=== PATIENT | female | born 1970 | race Caucasian/White ===

== ENCOUNTER 2023-05-16 11:59 | Emergency (ER) | payer MEDICARE, MEDICAID, SELFPAY ==
[2023-05-16 12:06] VITALS: BP 108/80; PULSE 85; RESP 18; TEMP 36.9; O2SAT 99; BMI 24.7
--- NOTE | 2023-05-16 13:18 | ED_ITS ---
HPI - Eye Problem General Chief complaint: Eye Problems Stated complaint: VISUAL DISTURBANCE/ EYE PAIN Time Seen by Provider: 05/16/23 12:16 Source: patient Mode of arrival: walk-in Limitations: no limitations History of Present Illness HPI Narrative: According to the patient she was helping someone of her relatives to do that her when she felt like something got inside her eye and she started her eye left eye tearing as well as blurry vision developed after few minutes The patient does not wear contact lenses and denies any other trauma she does not specifically remember that something got in her eyes but she remembers that the symptoms started while she was helping with her Related Data Previous Rx's Medication Instructions Recorded erythromycin 5 mg/gram (0.5 %) eye 0.5 inch ophthalmic (eye) Q4H left 05/16/23 ointment eye #3.5 grams tramadol 50 mg tablet 50 mg PO Q8H PRN pain #9 tabs 05/16/23 Allergies Allergy/AdvReac Type Severity Reaction Status Date / Time sulfamethoxazole Allergy Intermediate Verified 05/16/23 12:09 [From Bactrim] trimethoprim [From Bactrim] Allergy Intermediate Verified 05/16/23 12:09 Review of Systems ROS Status of ROS 10 or more systems reviewed and unremarkable except as noted in history and below PFSH PFSH Social History Smoking status: Former smoker Exam Narrative Exam Narrative: Nurses notes and vital signs reviewed and patient is not hypoxic. General: Well-appearing and in no apparent distress. Skin: Warm, dry, no pallor noted. No rash. Head: Normocephalic, atraumatic. Neck: Supple, non-tender. Eye: Pupils are reactive and equal and the patient have erythema of the left eye as well as conjunctival redness noted all over the eye there is tearing of the left eye as well Ears, Nose, Mouth, and Throat: TM are clear, no nasal mucosal hypertrophy. Oral mucosa is moist, no posterior oropharynx erythema, uvula is mid-line Cardiovascular: Regular Rate and Rhythm without murmur, gallop or rub. Respiratory: No accessory muscle use or respiratory distress. Lungs are clear to auscultation, no wheezing, rales or rhonchi Chest Wall: no tenderness Back: No midline thoracic or lumbar vertebral tenderness. No CVA tenderness Musculoskeletal: normal ROM, no calf or popliteal tenderness, no lower extremity edema/swelling GI: Abdomen is soft, non-distended. Normal bowel sounds. No masses appreciated. No tenderness to palpation. No rebound, guarding, or rigidity noted. Neurological: A&O x4. No cranial nerve dysfunction observed. No truncal ataxia. Moves all extremities. Sensation intact. Psychiatric: Cooperative and interactive. Normal mood and affect. Constitutional Vital Signs, click to edit/add: Last Vital Signs Temp 98.4 F 05/16/23 12:06 Pulse 85 05/16/23 12:06 Resp 18 05/16/23 12:06 BP 108/80 05/16/23 12:06 Pulse Ox 99 05/16/23 12:06 O2 Del Method Room Air 05/16/23 12:06 Course Vital Signs Vital signs: Vital Signs Temperature 98.4 F 05/16/23 12:06 Pulse Rate 85 05/16/23 12:06 Respiratory Rate 18 05/16/23 12:06 Blood Pressure 108/80 05/16/23 12:06 Pulse Oximetry 99 05/16/23 12:06 Oxygen Delivery Method Room Air 05/16/23 12:06 Temperature 98.4 F 05/16/23 12:06 Pulse Rate 85 05/16/23 12:06 Respiratory Rate 18 05/16/23 12:06 Blood Pressure 108/80 05/16/23 12:06 Pulse Oximetry 99 05/16/23 12:06 Oxygen Delivery Method Room Air 05/16/23 12:06 MDM - Eye Problem MDM Narrative Medical decision making narrative: Tetracaine was applied to the left eye after that the patient had a fluorescein test that showed that she have a abrasion that almost half millimeter at the [address] ter of the cornea circular in shape No other lesions found and no signs of trauma or leaking The patient was started on erythromycin instructed that she need to come back to the ER in case of any new symptom but she need to follow-up with ophthalmology Dr. Man information was provided to the patient to follow-up with him within 1 to 2 days The patient instructed about the importance of follow-up for proper healing Discharge Plan Discharge Chief Complaint: Eye Problems Clinical Impression: Corneal abrasion Patient Disposition: Home, Self-Care Time of Disposition Decision: 13:39 Condition: Good Mode of Transportation: Private Vehicle Prescriptions / Home Meds: New erythromycin 5 mg/gram (0.5 %) ointment 0.5 inch ophthalmic (eye) Q4H Qty: 3.5 0RF tramadol 50 mg tablet 50 mg PO Q8H PRN (Reason: pain) Qty: 9 0RF Instructions: Corneal Abrasion (ED), Photophobia (ED) Stand Alone Forms: Portal Instructions Referrals: Justin Man MD [Physician] - As soon as possible Physician,Non-Staff, [Primary Care Provider] - 1 week Discharge Date/Time: 05/16/23 14:08
[2023-05-16] MEDS: ERYTHROMYCIN OP OINT 0.5% 1 GM TUBE OP (13:41)
[2023-05-16] MEDS: FLUORESCEIN SODIUM 1 MG STRIP OP (13:58)
[2023-05-16] MEDS: TETRACAINE HCL 0.5% OP SOL 80 DROP/4 ML BOTTLE OP (13:59)
== END 2023-05-16 14:08 | disposition home or self-care (01) ==
PROVIDERS: Emergency Provider Emergency Medicine
DX: S05.02XA Injury of conjunctiva and corneal abrasion without foreign body, left eye, initial encounter (principal); X58.XXXA Exposure to other specified factors, initial encounter; Z87.891 Personal history of nicotine dependence
CPT/HCPCS: 99284

== ENCOUNTER 2024-09-21 16:53 | Emergency (ER) | payer MEDICARE, MEDICAID, SELFPAY ==
[2024-09-21 17:00] VITALS: BP 128/91; PULSE 83; TEMP 36.8; O2SAT 97; BMI 24.7
--- NOTE | 2024-09-21 17:05 | ED.GENADUL1 ---
HPI HPI - General Adult General Chief complaint: Upper Respiratory Infection Stated complaint: COUGH, FEVER Time Seen by Provider: 09/21/24 17:00 Mode of arrival: walk-in History of Present Illness HPI narrative: 54-year-old female presents for cough. She has had it for 2 days. A few weeks ago she saw her doctor for cough and a chest x-ray at that time was negative and her symptoms had gone away until 2 days ago. The cough is nonproductive. No fever or vomiting or diarrhea. Related Data Home Medications ?Medication ?Instructions ?Recorded ?Confirmed dolutegravir 50 mg-lamivudine 300 tab 09/21/24 mg tablet (Dovato) Previous Rx's ?Medication ?Instructions ?Recorded prednisone 10 mg tablet See Rx Instructions .Route 09/21/24 .COMPLEX #30 tabs Allergies Allergy/AdvReac Type Severity Reaction Status Date / Time sulfamethoxazole (From Allergy Intermediate blood Verified 09/21/24 17:00 Bactrim) reaction trimethoprim (From Bactrim) Allergy Unknown blood Verified 09/21/24 17:00 reaction Opioid HPI Opioid Management Most Recent Opioid Data: Last Pain Scale 8 05/16/23 12:54 05/16/23 Review of Systems ROS Narrative A ten point review of systems is negative except as noted above. PFSH PFSH Social History Smoking status: Former smoker Little interest or pleasure in doing things: not at all Feeling down, depressed, or hopeless: not at all Exam Narrative Exam Narrative: Nurses note and vital signs reviewed and patient is not hypoxic. General: The patient appears well and in no apparent distress. Patient is resting comfortably on cart. Skin: Warm, dry, no pallor noted. There is no rash noted. Head: Normocephalic, atraumatic Eye: Normal conjunctiva, no drainage Ears, Nose, Mouth, and Throat: oral mucosa is moist. Nares patent. Cardiovascular: Regular Rate and Rhythm Respiratory: Patient is in no distress, no accessory muscle use, lungs show a few rhonchi but overall good air movement Back: non-tender, no CVA tenderness bilaterally to percussion. GI: Soft and nontender Musculoskeletal: The patient has no evidence of calf tenderness, no pitting edema, symmetrical pulses noted bilaterally Neurological: A&O, normal speech Psychiatric: Cooperative Constitutional Vital Signs, click to edit/add: Last Vital Signs Temp 98.2 F 09/21/24 17:00 Pulse 83 09/21/24 17:00 Resp 18 09/21/24 17:00 BP 128/91 09/21/24 17:00 Pulse Ox 97 09/21/24 17:00 O2 Del Method Room Air 09/21/24 17:00 Course Vital Signs Vital signs: Vital Signs Temperature 98.2 F 09/21/24 17:00 Pulse Rate 83 09/21/24 17:00 Respiratory Rate 18 09/21/24 17:00 Blood Pressure 128/91 09/21/24 17:00 Pulse Oximetry 97 09/21/24 17:00 Oxygen Delivery Method Room Air 09/21/24 17:00 Temperature 98.2 F 09/21/24 17:00 Pulse Rate 83 09/21/24 17:00 Respiratory Rate 18 09/21/24 17:00 Blood Pressure 128/91 09/21/24 17:00 Pulse Oximetry 97 09/21/24 17:00 Oxygen Delivery Method Room Air 09/21/24 17:00 Medical Decision Making MDM Narrative Medical decision making narrative: COVID and influenza are negative. Her symptoms resolved and aerosol treatment. She is discharged home on prednisone and she has an albuterol inhaler at home that was recently filled. Treatment diagnosis and follow-up were discussed with the patient. My clinical impression is that she has a viral URI. Differential Diagnosis Differential Diagnosis: Viral URI, COVID, influenza Lab Data Lab results reviewed: Yes I reviewed the patient's lab results Labs: Lab Results 09/21/24 Range/Units 17:06 Influenza Type A Ag Negative Influenza Type B Ag Negative SARS-CoV-2 Ag (CV2AG) Negative (NEGATIVE) Discharge Plan Discharge Chief Complaint: Upper Respiratory Infection Clinical Impression: Viral URI Patient Disposition: Home, Self-Care Time of Disposition Decision: 17:43 Condition: Good Mode of Transportation: Private Vehicle Prescriptions / Home Meds: New prednisone 10 mg tablet See Rx Instructions .ROUTE .COMPLEX Qty: 30 0RF Rx Instructions: 4 by mouth daily for three days then 3 by mouth daily for three days then 2 by mouth daily for three days then 1 by mouth daily for three days No Action Dovato 50-300 mg tablet Print Language: Hungarian Instructions: Upper Respiratory Infection (ED) Referrals: Physician,Non-Staff, MD [Primary Care Provider] - 1 week
[2024-09-21] MEDS: ALBUTEROL SULFATE 2.5 MG/3 ML VIAL NEB IH (17:16)
--- OUTSIDE RECORDS SUMMARY | 2024-09-21 17:20 | XMS_ITS | CCD ---
Author Organization [facility] [employer] Care Team Providers Care Msw Name Role Phone REQUEST, DR NONE LISTED Primary Care Unavaila ble PAY ., DR TINEO Admitting Unavailable PAY ., DR TINEO Attending Unavailable ZIEBER, DR ROBBY Leyva Consulting Unavailable PAY ., DR TINEO Consulting Unavailable MISC, DR RIOS Admitting Unavailable MISC, DR RIOS Attending Unavailable REQUEST, NONE LISTED Primary Care Unavaila ble MISC, DR RIOS Consulting Unavailable ZIEBER, DR ROBBY Leyva Consulting Unavailable MISC, DR RIOS Admitting Unavailable MISC, DR RIOS Attending Unavailable REQUEST, NONE LISTED Primary Care Unavaila ble MISC, DR RIOS Consulting Unavailable ZIEBER, DR ROBBY Leyva Consulting Unavailable Unavailable Primary Care Provider UnavailWILSON Ford Referring Unavailable WILSON RAY Referring Unavailable WILSON RAY Referring Unavailable WILSON RAY Attending Unavailable Allergies Allergy Classification Reported Allergen(s) Allergy Type Date of Onset Reaction(s) Facility (1 source) Sulfamethoxazole / Trimethoprim Drug Allergy 5 [facility] Repository (1 source) abacavir; Translations: [ABACAVIR] Drug Allergy 3 [facility] Repository (1 source) Sulfamethoxazole / Trimethoprim; Translations: [SULFAMETHOXAZOLE-TR IMETHOPRIM] Drug Allergy 4 [facility] Repository Problems Active Problems Problem Classification Problem Date Documented Date Episodic/Chronic Chronic obstructive pulmonary disease and bronchiectasis (1 source) Chronic obstructive pulmonary disease with (acute) exacerbation; Translations: [COPD WITH ACUTE EXACERBATION] Onset: 11-17-2021 Chronic HIV infection (2 sources) Asymptomatic human immunodeficiency virus [HIV] infection status; Translations: [Asymptomatic human immunodeficiency virus (hiv) infection status] Onset: 12-31-2022 Chronic Nonmalignant breast conditions (4 sources) Unspecified lump in unspecified breast; Translations: [Unspecified lump in left breast, subareolar] Onset: 09-17-2022 Episodic Other screening for suspected conditions (not mental disorders or infectious disease) (8 sources) Inconclusive mammogram; Translations: [Encounter for screening for malignant neoplasm of respiratory organs] Onset: 08-07-2022 Episodic Pneumonia (except that caused by tuberculosis or sexually transmitted disease) (2 sources) Pneumonia, unspecified organism; Translations: [Pneumonia, unspecified organism] Onset: 07-28-2024 Episodic Residual codes; unclassified (1 source) Family history of malignant neoplasm of bladder; Translations: [FAM HX MALIGNANT NEOPLASM BLADDER] Onset: 09-26-2022 Episodic Screening and history of mental health and substance abuse codes (3 sources) Personal history of nicotine dependence; Translations: [PERSONAL HISTORY OF NICOTINE DEPEND] Onset: 08-12-2022 Episodic Substance-related disorders (3 sources) Nicotine dependence, cigarettes, uncomplicated; Translations: [Nicotine dependence, unspecified, in remission] Onset: 11-17-2021 Chronic Unclassified (1 source) Unspecified lump in the left breast, overlapping quadrants; Translations: [UNS LUMP LT BREAST OVRLPNG QUADRNTS] Onset: 08-12-2022 Unclassified (2 sources) COUGH, UNSPECIFIED; Translations: [COUGH, UNSPECIFIED] Onset: 11-17-2021 Unclassified (1 source) CONTACT W/AND (SUSP) EXPOS COVID-19; Translations: [CONTACT W/AND (SUSP) EXPOS COVID-19] Onset: 11-17-2021 Past or Other Problems Problem Classification Problem Date Documented Da te Episodic/Chronic Other upper respiratory infections (1 source) Acute upper respiratory infection, unspecified; Translations: [ACUTE UP RESPIRATORY INFECTION UNS] Onset: 11-17-2021 Episodic Unclassified (1 source) COUGH, UNSPECIFIED; Translations: [COUGH, UNSPECIFIED] Onset: 11-14-2021 Results Test Name Value Interpretation Reference Range Facility BI MAMMOGRAM SCREENING TOMOS YNTHESIS BILATERALon 09-04-2024 BI MAMMOGRAM SCREENING TOMOSYNTHESIS BILATERAL This is a summary report. The complete report is available in the patient's medical record. If you cannot access the medical record, please contact the sending organization for a detailed fax or copy. RUBA MEJIA 1970 [id number] EXAM: BI MAMMOGRAM SCREENING TOMOSYNTHESIS BILATERAL, 09/04/2024 2:18 PM CLINICAL INDICATIONS: Screening, COMPARISON: Prior mammogram from September and October 2022 and ultrasound from October 2022. TECHNIQUE: Bilateral digital tomosynthesis MLO and CC views of the breasts were obtained, with creation of synthetic 2D views. Computer aided detection was utilized. FINDINGS: There are scattered areas of fibroglandular density. There are no suspicious masses, calcifications, or areas of architectural distortion. Well-defined rounded one CM mass in the left breast upper aspect around 12 o'clock position which is unchanged since prior studies for nearly 2 years and likely represent benign fibroadenoma IMPRESSION: No mammographic evidence of malignancy. BI-RADS: BI-RADS 2: Benign RECOMMENDATION: Routine Screening Mammogram in 1 Year RISK ASSESSMENT: TC lifetime risk: 2.49% The patient's reported personal and family medical history was used to calculate their Tyrer-Cuzick lifetime risk of malignancy. Scores less than 20% are not considered high risk per ACR guidelines and patient should continue with the above recommendation. Electronically signed: Gladis Bennett MD. [facility] LDCT LUNG SCREENINGon 2024 LDCT LUNG SCREENING This is a summary report. The complete report is available in the patient's medical record. If you cannot access the medical record, please contact the sending organization for a detailed fax or copy. CLINICAL INFORMATION: Screening visit: Personal history of tobacco use/personal history of nicotine dependence. Lung cancer screening. The patient is a prior smoker. The patient has a 20 pack year history of smoking. COMPARISON: 01/19/2023 TECHNIQUE: Low dose CT chest performed without contrast with coronal and sagittal and maximum intensity projection reconstructed images. Maximum intensity projection images generated to increase the sensitivity of pulmonary nodule detection. Automated exposure control was utilized. All CT scans at this facility use dose modulation, iterative reconstruction, and/or weight based dosing when appropriate to reduce radiation dose to as low as reasonably achievable. FINDINGS: Diagnostic quality: Satisfactory Lung nodules: Stable small calcified granulomas Lungs and pleural spaces: Moderate centrilobular emphysema Heart and mediastinum: Unremarkable Heart size: Normal Coronary calcification: Mild Pericardial effusion: None Other findings: None significant IMPRESSION: Lung Rads Category: Benign appearance or behavior Recommendation: Follow up LDCT in 1 Year Electronically signed: Robby Plaza. Not Vldtd Invalid Interpretation Code [facility] Office Visiton 07-28-2024 Follow-up visit [id number] Ruba Mejia Gretchen 1970 Date Provider Department Center 07/28/2024 WILSON NARVAEZ [facility] CARE [facility] Family History Problem Relation Age of Onset Diabetes Mother Other Father Lymphoma Sister Other Brother Family Status - Relation Status Age at Mother Father Sister Brother Level of Service:81513 MD OFFICE/OUTPATIENT ESTABLISHED MOD MDM 30 MIN Reason for Visit and Comments: Medication Visit [612] Health Maintenance [619] - Coughing, fever, congestion, diarrhea - onset 4wks Chest pressure feels tight HIV Positive/AIDS [109] Normal [facility] Orders Onlyon 07-28-2024 Orders Only [id number] Ruba Mejia Gretchen 1970 Date Provider Department Center 07/28/2024 WILSON NARVAEZ [facility] INF [facility] Family History Problem Relation Age of Onset Diabetes Mother Other Father Lymphoma Sister Other Brother Family Status - Relation Status Age at Mother Father Sister Brother Normal [facility] CBC WITH AUTO DIFFERENTIALon 04-28-2024 Basophils (Bld) [#/Vol] 0.07 10*3/uL Normal 0.00-0.20 [facility] Comment on above: Performed By: #### L [id number] ####[facility] ([facility])[address] [place] [address] Basophils/100 WBC (Bld) 0.8 % Normal 0.0-1.0 [facility] Comment on above: Performed By: #### L [id number] ####[facility] ([facility])[address] [place] [address] Eosinophils (Bld) [#/Vol] 0.43 10*3/uL Normal 0.00-0.50 [facility] Comment on above: Performed By: #### L [id number] ####[facility] ([facility])[address] [place] [address] Eosinophils/100 WBC (Bld) 5.1 % Normal 0.0-6.0 [facility] Comment on above: Performed By: #### L [id number] ####[facility] [place] [address] Erythrocyte distribution width (RBC) [Ratio] 12.7 % Normal 11.5-15.0 [facility] Comment on above: Performed By: #### L [id number] ####[facility] ([facility] [place] [address] ERYTHROCYTE MEAN CORPUSCULAR HEMOGLOBIN CONCENTRATION (G/DL) BY AUTOMATED 33.7 g/dL Normal 32.0-35.0 [facility] Comment on above: Performed By: #### L [id number] ####[facility] ([facility] [place] [address] Hematocrit (Bld) [Volume fraction] 38.6 % Normal 36.0-48.0 [facility] Comment on above: Performed By: #### L [id number] ####[facility] ([facility])[address] [place] [address] Hemoglobin (Bld) [Mass/Vol] 13.0 g/dL Normal 12.0-15.0 [facility] Comment on above: Performed By: #### L [id number] ####[facility] ([facility])[address] [place] [address] Immature granulocytes (Bld) [#/Vol] 0.03 10*3/uL Normal 0.00-0.20 [facility] Comment on above: Performed By: #### L [id number] ####[facility] ([facility])[address] [place] [address] Immature granulocytes/100 WBC (Bld) 0.4 % Normal 0.0-1.0 [facility] Comment on above: Performed By: #### L [id number] ####[facility] ([facility])[address] [place] [address] Lymphocytes (Bld) [#/Vol] 3.01 10*3/uL Normal 1.20-4.00 [facility] Comment on above: Performed By: #### L [id number] ####[facility] ([facility])[address] [place] [address] Lymphocytes/100 WBC (Bld) 35.6 % Normal 20.0-45.0 [facility] Comment on above: Performed By: #### L [id number] ####[facility] ([facility])[address] [place] [address] MCH (RBC) [Entitic mass] 33.3 pg High 27.0-33.0 [facility] Comment on above: Performed By: #### L [id number] ####[facility] ([facility])[address] [place] [address] MCV (RBC) [Entitic vol] 99.0 fL High 82.0-98.0 [facility] Comment on above: Performed By: #### L [id number] ####[facility] ([facility])[address] [place] [address] Monocytes (Bld) [#/Vol] 0.55 10*3/uL Normal 0.10-1.00 [facility] Comment on above: Performed By: #### L [id number] ####[facility] ([facility] [place] [address] Monocytes/100 WBC (Bld) 6.5 % Normal 5.0-12.0 [facility] Comment on above: Performed By: #### L [id number] ####[facility] ([facility] [place] [address] Neutrophils (Bld) [#/Vol] 4.36 10*3/uL Normal 1.60-7.60 [facility] Comment on above: Performed By: #### L [id number] ####[facility] ([facility])[address] [place] [address] Neutrophils/100 WBC (Bld) 51.6 % Normal 40.0-72.0 [facility] Comment on above: Performed By: #### L [id number] ####[facility] ([facility])[address] [place] [address] NRBC (PER 100 WBCS) BY AUTOMATED COUNT 0.0 % Normal 0 [facility] Comment on above: Performed By: #### L [id number] ####[facility] ([facility])[address] [place] [address] PLATELETS (10*3/UL) IN BLOOD AUTOMATED COUNT 230 10*3/uL Normal 150-400 [facility] Comment on above: Performed By: #### L [id number] ####[facility] ([facility])[address] [place] [address] RBC (Bld) [#/Vol] 3.90 10*6/uL Normal 3.80-5.00 [facility] Comment on above: Performed By: #### L [id number] ####[facility] ([facility])[address] [place] [address] WBC (Bld) [#/Vol] 8.45 10*3/uL Normal 4.00-10.60 [facility] Comment on above: Performed By: #### L [id number] ####[facility] ([facility])[address] [place] [address] COMPREHENSIVE METABOLIC PANE Landry 04-28-2024 Albumin [Mass/Vol] 4.4 g/dL Normal 3.5-5.7 [facility] Comment on above: Performed By: #### L [id number] #### [facility] ([facility]) [address] [place] [address] ALP [Catalytic activity/Vol] 67 U/L Normal 34-104 [facility] Comment on above: Performed By: #### L [id number] #### [facility] ([facility]) [address] [place] [address] ALT [Catalytic activity/Vol] 10 U/L Normal 7-52 [facility] Comment on above: Performed By: #### L [id number] #### [facility] ([facility]) [address] [place] [address] Anion gap [Moles/Vol] 7 mmol/L Normal 7-20 [facility] Comment on above: Performed By: #### L [id number] #### [facility] ([facility]) [address] [place] [address] AST [Catalytic activity/Vol] 12 U/L Low 13-39 [facility] Comment on above: Performed By: #### L [id number] #### [facility] ([facility] [address] [place] [address] Bilirubin [Mass/Vol] 0.4 mg/dL Normal 0.3-1.0 [facility] Comment on above: Performed By: #### L [id number] #### [facility] ([facility] [address] [place] [address] Calcium [Mass/Vol] 9.4 mg/dL Normal 8.6-10.3 [facility] Comment on above: Performed By: #### L [id number] #### [facility] ([facility]) [address] [place] [address] Chloride [Moles/Vol] 108 mmol/L High 98-107 [facility] Comment on above: Performed By: #### L [id number] #### [facility] ([facility] [address] [place] [address] CO2 [Moles/Vol] 29 mmol/L Normal 21-31 [facility] Comment on above: Performed By: #### L [id number] #### [facility] ([facility] [address] [place] [address] Creatinine [Mass/Vol] 0.80 mg/dL Normal 0.60-1.20 [facility] Comment on above: Performed By: #### L [id number] #### [facility] ([facility]) [address] [place] [address] GLOMERULAR FILTRATION RATE ML/MIN/1.73 SQ M.PREDICTED 87.0 mL/min/1.73m*2 Normal >60.0 [facility] Comment on above: Result Comment: [facility]???s estimated glomerular filtration rate (eGFR) will no longer include consideration of race in its calculation. The National Kidney Foundation???s eGFR Task Force developed new recommendations for the estimation of the glomerular filtration rate in the [place] They recommend immediate implementation of the new equation refit without the race variable in all laboratories because the calculation does not include race. In addition to not including race in the calculation and reporting, it included diversity in its development, and has acceptable performance characteristics and potential consequences that do not disproportionately affect any one group of individuals. Performed By: #### L [id number] #### [facility] ([facility]) [address] [place] [address] Glucose [Mass/Vol] 91 mg/dL Normal 70-100 [facility] Comment on above: Performed By: #### L [id number] #### [facility] ([facility]) [address] [place] [address] Potassium [Moles/Vol] 4.0 mmol/L Normal 3.5-5.1 [facility] Comment on above: Performed By: #### L [id number] #### [facility] ([facility]) [address] [place] [address] Protein [Mass/Vol] 6.8 g/dL Normal 6.0-8.3 [facility] Comment on above: Performed By: #### L [id number] #### [facility] ([facility]) [address] [place] [address] Sodium [Moles/Vol] 140 mmol/L Normal 136-145 [facility] Comment on above: Performed By: #### L [id number] #### [facility] ([facility] [address] [place] [address] Urea nitrogen [Mass/Vol] 10 mg/dL Normal 7-25 [facility] Comment on above: Performed By: #### L [id number] #### [facility] ([facility]) [address] [place] [address] UREA NITROGEN/CREATININE (MASS RATIO) IN SER/PLAS 12.5 Normal [facility] Comment on above: Performed By: #### L [id number] #### [facility] ([place]) [address] [place] [address] Documentationon 04-28-2024 Documentation [id number] Ruba Mejia 1970 F Date Provider Department Center 04/28/2024 TRESA CARR [facility] CARE Alda Barraza Family History Problem Relation Age of Onset Diabetes Mother Other Father Lymphoma Sister Other Brother Family Status - Relation Status Age at Mother Father Sister Brother Reason for Visit and Comments: Care plan [Other] [facility] Labon 04-28-2024 Lab [id number] Ruba Mejia 1970 Date Provider Department [place] 04/28/2024 2244-[facility] MP LAB RESOURCE MP DRAW Medical Pavi Family History Problem Relation Age of Onset Diabetes Mother Other Father Lymphoma Sister Other Brother Family Status - Relation Status Age at Mother Father Sister Brother [facility] Office Visiton 04-28-2024 Follow-up visit [id number] Ruba Mejia 1970 F Date Provider Department Center 04/28/2024 WILSON NARVAEZ [facility] Alda Barraza Family History Problem Relation Age of Onset Diabetes Mother Other Father Lymphoma Sister Other Brother Family Status - Relation Status Age at Mother Father Sister Brother Level of Service:85362 MD OFFICE/OUTPATIENT ESTABLISHED MOD MDM 30 MIN Reason for Visit and Comments: Asymptomatic HIV infection, with no history of HIV-related [Other] Health Maintenance [619] - Declines flu shot Med Management [[id number]] Normal [facility] Orders Onlyon 04-28-2024 Orders Only [id number] Ruba Mejia 1970 Date Provider Department Center 04/28/2024 WILSON NARVAEZ [facility] INF Alda Barraza Family History Problem Relation Age of Onset Diabetes Mother Other Father Lymphoma Sister Other Brother Family Status - Relation Status Age at Mother Father Sister Brother Normal [facility] RPRon 04-28-2024 REAGIN AB PRESENCE IN SERUM BY RPR Non-Reactive Normal Nonreactive [facility] Comment on above: Performed By: #### L [id number] #### [facility] ([facility]) [address] [place] [address] T CELL SUBSET ANALYSISon CD3 77.59 % Normal 65.00-90.00 [facility] Comment on above: Performed By: #### L [id number] #### [facility] ([facility]) [address] [place] [address] CD3 ABSOLUTE 2334 cells/mm3 High 760-2130 [facility] Comment on above: Performed By: #### L [id number] #### [facility] ([facility]) [address] [place] [address] CD4 36.21 % Low 40.00-70.00 [facility] Comment on above: Performed By: #### L [id number] #### [facility] ([facility]) [address] [place] [address] CD4 ABSOLUTE 1089 cells/mm3 Normal 430-1185 [facility] Comment on above: Performed By: #### L [id number] #### [facility] ([facility]) [address] [place] [address] CD4:CD8 0.89 Low 1.00-4.00 [facility] Comment on above: Performed By: #### L [id number] #### [facility] ([facility]) [address] [place] [address] CD8 40.58 % High 15.00-40.00 [facility] Comment on above: Performed By: #### L [id number] #### [facility] ([facility]) [address] [place] [address] CD8 ABSOLUTE 1221 cells/mm3 High 180-865 [facility] Comment on above: Performed By: #### L [id number] #### [facility] ([facility]) [address] [place] [address] [place] 03-06-2024 Refill [id number] Ruba Mejia 1970 F Date Provider Department Center 03/06/2024 WILSON NARVAEZ [facility] Family History Problem Relation Age of Onset Diabetes Mother Other Father Lymphoma Sister Other Brother Family Status - Relation Status Age at Mother Father Sister Brother Reason for Visit and Comments: Med Refill [201499] [facility] [place] 10-06-2023 Refill [id number] Ruba Mejia 1970 F Date Provider Department Center 10/06/2023 [place] WILSON [facility] Family History Problem Relation Age of Onset Diabetes Mother Other Father Lymphoma Sister Other Brother Family Status - Relation Status Age at Mother Father Sister Brother Reason for Visit and Comments: Med Refill [[id number]] [facility] MG MAMM LT DIAG FUon 023 MG MAMM LT DIAG FU Patient: RYLIE MEJIA Exam Date: 09/17/2022 : 1970 Gender:F Ordering : DR RIOS [facility] Admission #: [id number] Family : Order #: [id number] CLICK HERE TO VIEW EXAM RADIOLOGY REPORT PROCEDURE: MAMMOGRAM LEFT DIAGNOSTIC DIGITAL FOLLOW UP, 09/17/2022, 14:52 ULTRASOUND BREAST LEFT LIMITED, 09/17/2022, 15:33 COMPARISON: MG MAMM SCREEN 3D HERIBERTO CAD, 08/07/2022. INDICATIONS: Breast lump Calculator Name NCI Breast Cancer Risk Assessment Tool 5 Year Breast Cancer Risk 0.70% Lifetime Breast Cancer Risk 5.70% Personal Breast Cancer No Personal Ovarian Cancer No Treatments None Family Cancers Father with bladder cancer at age 70. LOCATION: [facility] BREAST COMPOSITION: Heterogeneously dense,which may obscure small masses. FINDINGS: DIAGNOSTIC CATEGORY 3--PROBABLY BENIGN FINDING. THE FOLLOWING FINDING(S) HAS A HIGH PROBABILITY OF A BENIGN ETIOLOGY: LEFT BREAST: No significant suspicious finding. Spot magnification views demonstrate persistence of a 1.0 cm partially circumscribed mass/cyst within the subareolar region. Ultrasound evaluation demonstrates a 9 x 8 x 7 mm thin walled smoothly circumscribed hypoechoic lesion at the 12 o'clock position which demonstrates a fluid-fluid level or fluid-soft tissue level; likely blood products within the hemorrhagic cyst. Follow-up spot magnification mammography views and ultrasound evaluation in 3 months is recommended to document stability. RECOMMENDATIONS: SHORT TERM FOLLOW-UP DIAGNOSTIC MAMMOGRAM LEFT IN 3 MONTHS. SHORT TERM FOLLOW-UP ULTRASOUND LEFT BREAST IN 3 MONTHS. PLEASE NOTE: A NORMAL MAMMOGRAM DOES NOT EXCLUDE THE POSSIBILITY OF BREAST CANCER. A CLINICALLY SUSPICIOUS PALPABLE LUMP SHOULD BE BIOPSIED. Dictated by: Robby Balderas M.D. on 09/18/2022 at 07:05 Approved by: Robby Balderas M.D. on 09/18/2022 at 07:16 Normal [facility] US BREAST LEFT LIMITEDon US BREAST LEFT LIMITED Patient: RUBA MEJIA Exam Date: 09/17/2022 : 1970 Gender:F Ordering : DR RIOS [facility] Admission #: [id number] Family : Order #: [id number] CLICK HERE TO VIEW EXAM RADIOLOGY REPORT PROCEDURE: MAMMOGRAM LEFT DIAGNOSTIC DIGITAL FOLLOW UP, 09/17/2022, 14:52 ULTRASOUND BREAST LEFT LIMITED, 09/17/2022, 15:33 COMPARISON: MG MAMM SCREEN 3D HERIBERTO CAD, 08/07/2022. INDICATIONS: Breast lump Calculator Name NCI Breast Cancer Risk Assessment Tool 5 Year Breast Cancer Risk 0.70% Lifetime Breast Cancer Risk 5.70% Personal Breast Cancer No Personal Ovarian Cancer No Treatments None Family Cancers Father with bladder cancer at age 70. LOCATION: [facility] BREAST COMPOSITION: Heterogeneously dense,which may obscure small masses. FINDINGS: DIAGNOSTIC CATEGORY 3--PROBABLY BENIGN FINDING. THE FOLLOWING FINDING(S) HAS A HIGH PROBABILITY OF A BENIGN ETIOLOGY: LEFT BREAST: No significant suspicious finding. Spot magnification views demonstrate persistence of a 1.0 cm partially circumscribed mass/cyst within the subareolar region. Ultrasound evaluation demonstrates a 9 x 8 x 7 mm thin walled smoothly circumscribed hypoechoic lesion at the 12 o'clock position which demonstrates a fluid-fluid level or fluid-soft tissue level; likely blood products within the hemorrhagic cyst. Follow-up spot magnification mammography views and ultrasound evaluation in 3 months is recommended to document stability. RECOMMENDATIONS: SHORT TERM FOLLOW-UP DIAGNOSTIC MAMMOGRAM LEFT IN 3 MONTHS. SHORT TERM FOLLOW-UP ULTRASOUND LEFT BREAST IN 3 MONTHS. PLEASE NOTE: A NORMAL MAMMOGRAM DOES NOT EXCLUDE THE POSSIBILITY OF BREAST CANCER. A CLINICALLY SUSPICIOUS PALPABLE LUMP SHOULD BE BIOPSIED. Dictated by: Robby Balderas M.D. on 09/18/2022 at 07:05 Approved by: Robby Balderas M.D. on 09/18/2022 at 07:16 Normal [facility] CT LUNG CANCER SCREENINGon 0 08-07-2022 CT LUNG CANCER SCREENING EXAMINATION: CT LUNG CANCER SCREENING HISTORY: Nicotine dependence COMPARISON: No relevant comparison available. TECHNIQUE: Axial, Coronal, and Sagittal images were created without the administration of IV contrast material. Dose reduction techniques were achieved by using automated exposure control and/or adjustment of mA and/or kV according to patient size and/or use of iterative reconstruction technique. FINDINGS: LUNGS: Moderate emphysematous changes. A few small calcification granulomas scattered within the lungs. No suspicious nodules. PLEURA: No mass, effusion, or pneumothorax. VASCULATURE: No abnormality. ROLANDO: Calcified right hilar lymph nodes. MEDIASTINUM: No mass or pathologic adenopathy. CARDIAC: No enlargement, pericardial thickening, or significant calcification. AORTA: No aneurysm or dissection. CHEST WALL: No mass or axillary adenopathy BONES: No bone lesion or fracture. LIMITED ABDOMEN: No suspicious findings. Limited images of the upper abdomen. OTHER: Negative. IMPRESSION: 1. Lung-RADS 2- Benign Appearance or Behavior. Nodules with a very low likelihood of becoming a clinically active cancer due to size or lack of growth. Follow-up CT Chest in 1 year. Electronically authenticated by: ROBBY BALDERAS Date: 2022-08-07 15:32 Normal [facility] MG MAMM SCREEN 3D HERIBERTO CADon 08-07-2022 MG MAMM SCREEN 3D HERIBERTO CAD Patient: RUBA MEJIA Exam Date: 08/07/2022 : 1970 Gender:F Ordering : DR. WILSON RAY M.D. Admission #: [id number] Family : Order #: [id number] CLICK HERE TO VIEW EXAM RADIOLOGY REPORT PROCEDURE: MAMMOGRAM SCREENING 3D BILATERAL CAD COMPARISON: MAMMO HERIBERTO SCREEN, 11/12/2015. MG MAMM RT DIAG FU, 12/11/2015. INDICATIONS: Screening mammography Calculator Name NCI Breast Cancer Risk Assessment Tool 5 Year Breast Cancer Risk 0.70% Lifetime Breast Cancer Risk 5.70% Personal Breast Cancer No Personal Ovarian Cancer No Treatments None Family Cancers Father with bladder cancer at age 70. LOCATION: [facility] BREAST COMPOSITION: Heterogeneously dense,which may obscure small masses. FINDINGS: DIAGNOSTIC CATEGORY 0--INCOMPLETE: NEED ADDITIONAL IMAGING EVALUATION. RIGHT BREAST: No significant suspicious finding. No significant change has occurred. LEFT BREAST: Partially circumscribed 10 x 8 9 x 8 mm nodule within mid breast approximately 12 o'clock. Spot magnification views and ultrasound are recommended for further evaluation. RECOMMENDATIONS: ADDITIONAL MAMMOGRAPHIC VIEWS REQUIRED: LEFT BREAST - LEFT CRANIOCAUDAL SPOT MAGNIFICATION VIEW - LEFT OBLIQUE SPOT MAGNIFICATION VIEW - ULTRASOUND: LEFT BREAST PLEASE NOTE: A NORMAL MAMMOGRAM DOES NOT EXCLUDE THE POSSIBILITY OF BREAST CANCER. A CLINICALLY SUSPICIOUS PALPABLE LUMP SHOULD BE BIOPSIED. Dictated by: Robby Balderas M.D. on 08/07/2022 at 14:31 Approved by: Robby Balderas M.D. on 08/07/2022 at 14:36 Normal [facility] CBC W/DIFFon 12-19-2021 ABS IMM GRANS 0.0 10*3/uL Normal 0.0-0.2 [facility] Comment on above: Performed By: #### 3 1627 #### [facility] [address] ABS NEUTROPHILS 4.4 10*3/uL Normal 1.6-7.6 [facility] Comment on above: Performed By: #### 3 1627 #### [facility] [address] [place] [address], [facility] Basophils (Bld) [#/Vol] 0.0 10*3/uL Normal 0.0-0.2 [facility] Comment on above: Performed By: #### 3 1627 #### [facility] [address] [place] [address], [facility] Basophils/100 WBC (Bld) 0.4 % Normal 0.0-1.0 [facility] Comment on above: Performed By: #### 3 1627 #### [facility] [address] [place] [address], [facility] Eosinophils (Bld) [#/Vol] 0.1 10*3/uL Normal 0.0-0.5 [facility] Comment on above: Performed By: #### 3 1627 #### [facility] [address] [place] [address], [facility] Eosinophils/100 WBC (Bld) 1.6 % Normal 0.0-6.0 [facility] Comment on above: Performed By: #### 3 1627 #### [facility] [address] Erythrocyte distribution width (RBC) [Ratio] 13.0 % Normal 11.5-15.0 [facility] Comment on above: Performed By: #### 3 1627 #### [facility] [address] [facility] [place] [address], [facility] Hematocrit (Bld) [Volume fraction] 39.2 % Normal 36.0-45.0 [facility] Comment on above: Performed By: #### 3 1627 #### [facility] [address] [facility] [place] [address], [facility] Hemoglobin (Bld) [Mass/Vol] 13.0 g/dL Normal 12.0-15.0 [facility] Comment on above: Performed By: #### 3 1627 #### [facility] [address] [facility] [place] [address], [facility] IMMATURE GRANS 0.1 % Normal 0.0-1.0 [facility] Comment on above: Performed By: #### 3 1627 #### [facility] [address] [place] [address], [facility] Lymphocytes (Bld) [#/Vol] 2.9 10*3/uL Normal 1.2-4.0 [facility] Comment on above: Performed By: #### 3 1627 #### [facility] [address] [place] [address], [facility] Lymphocytes/100 WBC (Bld) 36.5 % Normal 20.0-45.0 [facility] Comment on above: Performed By: #### 3 1627 #### [facility] [address] [place] [address], [facility] MCH (RBC) [Entitic mass] 33.1 pg High 27.0-33.0 [facility] Comment on above: Performed By: #### 3 1627 #### [facility] [address] [place] [address], [facility] MCHC (RBC) [Mass/Vol] 33.2 g/dL Normal 32.0-35.0 [facility] Comment on above: Performed By: #### 3 1627 #### [facility] [address] [place] [address], [facility] MCV (RBC) [Entitic vol] 99.7 fL High 82.0-98.0 [facility] Comment on above: Performed By: #### 3 1627 #### [facility] [address] [place] [address], [facility] Monocytes (Bld) [#/Vol] 0.4 10*3/uL Normal 0.1-1.0 [facility] Comment on above: Performed By: #### 3 1627 #### [facility] [address] [place] [address], [facility] MONOS 5.5 % Normal 5.0-12.0 [facility] Comment on above: Performed By: #### 3 1627 #### [facility] [address] [place] [address], [facility] Neutrophils/100 WBC (Bld) 55.9 % Normal 40.0-72.0 [facility] Comment on above: Performed By: #### 3 1627 #### [facility] [address] [place] [address], [facility] Nucleated RBC/100 WBC (Bld) [Ratio] 0 % Normal 0-0 [facility] Comment on above: Performed By: #### 3 1627 #### [facility] [address] [place] [address], [facility] PLAT CNT 210 10*3/uL Normal 150-400 [facility] Comment on above: Performed By: #### 3 1627 #### [facility] [address] [facility] [place] [address], [facility] RBC (Bld) [#/Vol] 3.93 10*6/uL Normal 3.80-5.00 [facility] Comment on above: Performed By: #### 3 1627 #### [facility] [address] [facility] [place] [address], [facility] WBC (Bld) [#/Vol] 7.95 10*3/uL Normal 4.00-10.60 [facility] Comment on above: Performed By: #### 3 1627 #### [facility] [address] CHLAMYDIA/GONORRHEA BY TMAon 12-19-2021 CHLAMYDIA BY TMA Negative Normal NEGATIVE [facility] Comment on above: Result Comment: No C hlamydia trachomatis rRNA Detected. Performed By: #### 3 1627 #### [facility] [address] GONORRHEA BY TMA Negative Normal NEGATIVE [facility] Comment on above: Result Comment: No Neisseria gonorrhoeae rRNA Detected. The Aptima Combo 2 Assay is a FDA approved target amplification nucleic acid probe test that utilizes target capture for the in vitro qualitative detection and differentiation of ribosomal RNA (rRNA) from Chlamydia trachomatis (CT) and/or Neisseria gonorrhoeae (GC) to aid the diagnosis of chlamydial and/or gonococcal urogenital disease using the Carleton System. The Aptima Combo2 Assay involves: target capture; target amplification by Bus Starter-Mediated Amplification (TMA); and detection of the amplification products (amplicon) by the Hybridization Protection Assay (HPA). The internal process controls of the Carleton System monitor the target capture, amplification, and detection steps of the assay, this is NOT intended to control for sampling adequacy. Performed By: #### 3 1627 #### [facility] [address] [place] [address], [facility] COMP METABOLIC PANELon 12-19 Albumin [Mass/Vol] 3.9 g/dL Normal 3.5-5.7 [facility] Comment on above: Performed By: #### 0 0121 #### [facility] [address] [place] [address], [facility] ALKALINE PHOSPH 56 IU/L Normal 34-104 [facility] Comment on above: Performed By: #### 0 0121 #### [facility] [address] [place] [address], [facility] ALT [Catalytic activity/Vol] 8 U/L Normal 7-52 [facility] Comment on above: Performed By: #### 0 0121 #### [facility] [address] [place] [address], [facility] AST [Catalytic activity/Vol] 14 U/L Normal 13-39 [facility] Comment on above: Performed By: #### 0 0121 #### [facility] [address] [place] [address], [facility] Bilirubin [Mass/Vol] 0.6 mg/dL Normal 0.3-1.0 [facility] Comment on above: Performed By: #### 0 0121 #### [facility] [address] [place] [address], [facility] Calcium [Mass/Vol] 8.8 mg/dL Normal 8.6-10.3 [facility] Comment on above: Performed By: #### 0 0121 #### [facility] [address] [place] [address], [facility] Chloride [Moles/Vol] 106 mmol/L Normal 98-107 [facility] Comment on above: Performed By: #### 0 0121 #### [facility] [address] [place] [address], [place] CO2 [Moles/Vol] 28 mmol/L Normal 21-31 [facility] Comment on above: Performed By: #### 0 0121 #### [facility] [address] [place] [address], [place] Creatinine [Mass/Vol] 0.74 mg/dL Normal 0.60-1.20 [facility] Comment on above: Performed By: #### 0 0121 #### [facility] [address] [place] [address], [place] GFR/1.73 sq M.predicted among blacks MDRD (S/P/Bld) [Vol rate/Area] mL/min/{1.73_m2} Normal >60 [facility] Comment on above: Performed By: #### 0 0121 #### [facility] [address] [place] [address], [place] GFR/1.73 sq M.predicted among non-blacks MDRD (S/P/Bld) [Vol rate/Area] mL/min/{1.73_m2} Normal >60 [facility] Comment on above: Performed By: #### 0 0121 #### [facility] [address] [place] [address], [place] Glucose [Mass/Vol] 89 mg/dL Normal 70-100 [facility] Comment on above: Performed By: #### 0 0121 #### [facility] [address] [place] [address], [place] Potassium [Moles/Vol] 4.1 mmol/L Normal 3.5-5.1 [facility] Comment on above: Performed By: #### 0 0121 #### [facility] [address] [place] [address], [place] Protein [Mass/Vol] 6.5 g/dL Normal 6.0-8.3 [facility] Comment on above: Performed By: #### 0 0121 #### [facility] [address] Sodium [Moles/Vol] 139 mmol/L Normal 136-145 [facility] Comment on above: Performed By: #### 0 0121 #### [facility] [address] [facility] [address] Urea nitrogen [Mass/Vol] 9 mg/dL Normal 7-25 [facility] Comment on above: Performed By: #### 0 0121 #### [facility] [address] [facility]. [address] HIV VIRAL LOADon 12-19-2021 HIV QNT RNA PCR: DETECTED BUT <30 Normal [facility] Comment on above: Result Comment: The Aptima HIV Quant assay is a real-time fixing machine operator-mediated amplification (TMA) test which has a dynamic range of 30-10,000,000 copies/mL (1.47-7.0 log copies/mL). The Aptima HIV Quant assay is used for quantitation of human immunodeficiency virus type 1 (HIV-1) RNA in human plasma from HIV-infected individuals. The Aptima HIV-1 Quant assay is intended for use in conjunction with clinical presentation and other laboratory markers for disease prognosis and for use as an aid in monitoring the effects of antiretroviral treatment, as measured by changes in plasma HIV-1 RNA levels. This assay is not intended to be used as a donor screening test for HIV-1 or as a diagnostic test to confirm the presence of HIV-1 infection. Performed By: #### 8 [id number] #### [facility] [address] [facility]. [address] LOG 10 COPIES <1.47 Normal [facility] Comment on above: Performed By: #### 8 [id number] #### [facility] [address] RPR (RAPID PLASMA REAGIN)on 12-19-2021 Reagin Ab RPR Ql (S) Non-Reactive Normal NON-REACTIVE [facility] Comment on above: Performed By: #### 3 1627 #### [facility] [address] [place] [address], [facility] URINALYSISon 12-19-2021 Appearance (U) SL CLOUDY Abnormal CLEAR [facility] Comment on above: Performed By: #### 1 0008 #### [facility] [address] [place] [address], [place] Bilirubin Ql (U) Negative Normal NEGATIVE [facility] Comment on above: Performed By: #### 1 0008 #### [facility] [address] [place] [address], [facility] Color (U) YELLOW Normal YELLOW [facility] Comment on above: Performed By: #### 1 0008 #### [facility] [address] [place] [address], [place] EPIS MOD Abnormal FEW,OCC,NONE SEEN [facility] Comment on above: Performed By: #### 1 0008 #### [facility] [address] [place] [address], [place] Glucose Ql (U) Negative Normal NEGATIVE [facility] Comment on above: Performed By: #### 1 0008 #### [facility] [address] [place] [address], [place] Hemoglobin Ql (U) MODERATE Abnormal NEGATIVE [facility] Comment on above: Performed By: #### 1 0008 #### [facility] [address] [place] [address], [place] KETONE Negative Normal NEGATIVE [facility] Comment on above: Performed By: #### 1 0008 #### [facility] [address] [place] [address], [place] LEUK LAURENCE Negative Normal NEGATIVE [facility] Comment on above: Performed By: #### 1 0008 #### [facility] [address] MUCUS THREADS FEW Abnormal NONE SEEN [facility] Comment on above: Performed By: #### 1 0008 #### [facility] [address] Nitrite Ql (U) Negative Normal NEGATIVE [facility] Comment on above: Performed By: #### 1 0008 #### [facility] [address] pH (U) 6.0 [pH] Normal 5.0-8.0 [facility] Comment on above: Performed By: #### 1 0008 #### [facility] [address] Protein Ql (U) Negative Normal NEGATIVE [facility] Comment on above: Performed By: #### 1 0008 #### [facility] [address] RBC 21-50 Abnormal NONE SEEN [facility] Comment on above: Performed By: #### 1 0008 #### [facility] [address] SPEC GRAV 1.018 Normal 1.015-1.020 [facility] Comment on above: Performed By: #### 1 0008 #### [facility] [address] WBC UA NONE SEEN Normal NONE SEEN [facility] Comment on above: Performed By: #### 1 0008 #### [facility] [address] t cell subset analysison CD3 % 76.36 % Normal 65.00-90.00 [facility] Comment on above: Order Comment: This test was developed and its performance characteristics determined by the [facility] Flow Cytometry [facility]. It has not been cleared or approved by the U.S. Food and Drug Administration. Performed By: #### 9 0116 #### [facility] [address] CD3 ABSOLUTE 2216 cells/mm3 High 760-2130 [facility] Comment on above: Order Comment: This test was developed and its performance characteristics determined by the [facility] Flow Cytometry Laboratory. It has not been cleared or approved by the U.S. Food and Drug Administration. Performed By: #### 9 0116 #### [facility] [address] CD4 % 35.85 % Low 40.00-70.00 [facility] Comment on above: Order Comment: This test was developed and its performance characteristics determined by the [facility] Flow Cytometry Laboratory. It has not been cleared or approved by the [place].S. Food and Drug Administration. Performed By: #### 9 0116 #### [address] CD4 ABSOLUTE 1040 cells/mm3 Normal 430-1185 [facility] Comment on above: Order Comment: This test was developed and its performance characteristics determined by the [facility] Flow Cytometry [facility]. It has not been cleared or approved by the [place].S. Food and Drug Administration. Performed By: #### 9 0116 #### [address] CD4:CD8 RATIO 0.90 Low 1.00-4.00 [facility] Comment on above: Order Comment: This test was developed and its performance characteristics determined by the [facility] Flow Cytometry [facility]. It has not been cleared or approved by the U.S. Food and Drug Administration. Performed By: #### 9 0116 #### [facility] [address] CD8 % 40.02 % High 15.00-40.00 [facility] Comment on above: Order Comment: This test was developed and its performance characteristics determined by the [facility] Flow Cytometry [facility]. It has not been cleared or approved by the [place].S. Food and Drug Administration. Performed By: #### 9 0116 #### [facility] [address] [place] [address], [facility] CD8 ABSOLUTE 1161 cells/mm3 High 180-865 [facility] Comment on above: Order Comment: This test was developed and its performance characteristics determined by the [facility] Flow Cytometry [facility]. It has not been cleared or approved by the [place].S. Food and Drug Administration. Performed By: #### 9 0116 #### [facility] [address] [place] [address], [facility] Covid-19 PCR (CVDTBH)on SARS-CoV-2 (COVID-19) RNA JD+probe Ql (Unsp spec) Not detected Normal NOT DETECTED [facility] Comment on above: Result Comment: When diagnostic testing is negative, the possibility of a false negative should be considered in the context of a patient's recent exposures and the presence of clinical signs and symptoms consistent with SARS-CoV-2. This test is not yet approved or cleared by the [place] FDA. When there are no FDA-approved or cleared tests available, and other criteria are met, FDA can make tests available under an emergency access mechanism called an Emergency Use Authorization (EUA). The EUA for this test is supported by the [place] of Health and Human Service's declaration that circumstances exist to justify the emergency use of in vitro diagnostics for the detection and/or diagnosis of the virus that causes COVID-19. This EUA will remain in effect for the duration of the COVID-19 declaration justifying emergency of IVDs, unless it is terminated or revoked by the FDA (after which the test may no longer be used). Performed By: #### C VDTBH #### [facility] [address] [place] [id number] Luzma Landin INFLUENZA A AND B AGon 11-14 INFLUANEGH SEE BELOW Normal [facility] Comment on above: Result Comment: Nega tive for Flu A protein angiten. Infection due to Flu A cannot be ruled out. Flu A angiten in the sample may be below the detection limit of the test. Performed By: #### I NFLUAB #### [facility] [address] [address] [address] [facility] SEE BELOW Normal [facility] Comment on above: Result Comment: Nega tive for Flu B protein antigen. Infection due to Flu B cannot be ruled out. Flu B antigen in the sample may be below the detection limit of the test. Performed By: #### I NFLUAB #### [facility] [address] [address] [address] Luzma Landin INFLUENZA A AG Negative Normal NEGATIVE SEE COMMENT [facility] Comment on above: Performed By: #### I NFLUAB #### [facility] [facility] [address] [place] [address] Dr. Luzma Landin INFLUENZA B AG Negative Normal NEGATIVE SEE COMMENT [facility] Comment on above: Performed By: #### I NFLUAB #### [facility] [address] [place] [address] Dr. Luzma Landin INTERNAL CONTROLS Within Normal Limits Normal Wi thin Normal Limits [facility] Comment on above: Performed By: #### I NFLUAB #### [facility] [address] [place] [address] Dr. Luzma Landin XR CHEST 1 Von 11-14-2021 XR CHEST 1 V EXAMINATION: XR CHES T 1 V HISTORY: SHORTNESS OF BREATH COMPARISON: XR chest 06/02/2021 FINDINGS: LUNGS: No significant pulmonary parenchymal abnormalities. VASCULATURE: No increased pulmonary vasculature. PLEURA: No pneumothorax, effusion, or pleural thickening. CARDIAC: No cardiomegaly or cardiac silhouette abnormality. MEDIASTINUM: No visible mass or adenopathy. BONES: No fracture or visible bone lesion. OTHER: Negative. IMPRESSION: 1. No acute cardiopulmonary process. Stable chest. Electronically authenticated by: ROBBY BALDERAS Date: 2021-11-14 12:02 Normal [facility] CBC W/DIFFon 06-20-2021 ABS IMM GRANS 0.0 10*3/uL Normal 0.0-0.2 [facility] Comment on above: Performed By: #### 3 1627 #### [facility] [address] [place] [address], [facility] ABS NEUTROPHILS 5.4 10*3/uL Normal 1.6-7.6 [facility] Comment on above: Performed By: #### 3 1627 #### [facility] [address] [place] [address], [facility] Basophils (Bld) [#/Vol] 0.0 10*3/uL Normal 0.0-0.2 [facility] Comment on above: Performed By: #### 3 1627 #### [facility] [address] [place] [address], [place] Basophils/100 WBC (Bld) 0.4 % Normal 0.0-1.0 [facility] Comment on above: Performed By: #### 3 1627 #### [facility] [address] [place] [address], [facility] Eosinophils (Bld) [#/Vol] 0.1 10*3/uL Normal 0.0-0.5 [facility] Comment on above: Performed By: #### 3 1627 #### [facility] [address] [place] [address], [facility] Eosinophils/100 WBC (Bld) 0.7 % Normal 0.0-6.0 [facility] Comment on above: Performed By: #### 3 7 #### [facility] [address] [place] [address], [facility] Erythrocyte distribution width (RBC) [Ratio] 12.5 % Normal 11.5-15.0 [facility] Comment on above: Performed By: #### 3 1627 #### [facility] [address] [place] [address], [place] Hematocrit (Bld) [Volume fraction] 38.8 % Normal 36.0-45.0 [facility] Comment on above: Performed By: #### 3 1627 #### [facility] [address] [place] [address], [place] Hemoglobin (Bld) [Mass/Vol] 13.1 g/dL Normal 12.0-15.0 [facility] Comment on above: Performed By: #### 3 1627 #### [facility] [address] [facility] [place] [address], [facility] IMMATURE GRANS 0.4 % Normal 0.0-1.0 [facility] Comment on above: Performed By: #### 3 1627 #### [facility] [address] [facility] [place] [address], [facility] Lymphocytes (Bld) [#/Vol] 3.1 10*3/uL Normal 1.2-4.0 [facility] Comment on above: Performed By: #### 3 1627 #### [facility] [address] [place] [address], [facility] Lymphocytes/100 WBC (Bld) 33.4 % Normal 20.0-45.0 [facility] Comment on above: Performed By: #### 3 1627 #### [facility] [address] [facility] [place] [address], [facility] MCH (RBC) [Entitic mass] 34.0 pg High 27.0-33.0 [facility] Comment on above: Performed By: #### 3 1627 #### [facility] [address] [place] [address], [facility] MCHC (RBC) [Mass/Vol] 33.8 g/dL Normal 32.0-35.0 [facility] Comment on above: Performed By: #### 3 1627 #### [facility] [address] [place] [address], [facility] MCV (RBC) [Entitic vol] 100.8 fL High 82.0-98.0 [facility] Comment on above: Performed By: #### 3 1627 #### [facility] [address] [facility] [place] [address], [facility] Monocytes (Bld) [#/Vol] 0.5 10*3/uL Normal 0.1-1.0 [facility] Comment on above: Performed By: #### 3 1627 #### [facility] [address] [place] [address], [facility] MONOS 5.7 % Normal 5.0-12.0 [facility] Comment on above: Performed By: #### 3 1627 #### [facility] [address] [place] [address], [facility] Neutrophils/100 WBC (Bld) 59.4 % Normal 40.0-72.0 [facility] Comment on above: Performed By: #### 3 1627 #### [facility] [address] Nucleated RBC/100 WBC (Bld) [Ratio] 0 % Normal 0-0 [facility] Comment on above: Performed By: #### 3 1627 #### [facility] [address] PLAT CNT 220 10*3/uL Normal 150-400 [facility] Comment on above: Performed By: #### 3 1627 #### [facility] [address] RBC (Bld) [#/Vol] 3.85 10*6/uL Normal 3.80-5.00 [facility] Comment on above: Performed By: #### 3 1627 #### [facility] [address] [place] [address], [facility] WBC (Bld) [#/Vol] 9.12 10*3/uL Normal 4.00-10.60 [facility] Comment on above: Performed By: #### 3 1627 #### [facility] [address] CHLAMYDIA/GONORRHEA BY TMAon 06-20-2021 CHLAMYDIA BY TMA Negative Normal NEGATIVE [facility] Comment on above: Result Comment: No C hlamydia trachomatis rRNA Detected. Performed By: #### 3 1627 #### [facility] [address] [place] [address], [facility] GONORRHEA BY TMA Negative Normal NEGATIVE [facility] Comment on above: Result Comment: No Neisseria gonorrhoeae rRNA Detected. The Aptima Combo 2 Assay is a FDA approved target amplification nucleic acid probe test that utilizes target capture for the in vitro qualitative detection and differentiation of ribosomal RNA (rRNA) from Chlamydia trachomatis (CT) and/or Neisseria gonorrhoeae (GC) to aid the diagnosis of chlamydial and/or gonococcal urogenital disease using the Carleton System. The Aptima Combo2 Assay involves: target capture; target amplification by Bus Starter-Mediated Amplification (TMA); and detection of the amplification products (amplicon) by the Hybridization Protection Assay (HPA). The internal process controls of the Carleton System monitor the target capture, amplification, and detection steps of the assay, this is NOT intended to control for sampling adequacy. Performed By: #### 3 1627 #### [facility] [address] [facility] [address] COMP METABOLIC PANELon 06-20 Albumin [Mass/Vol] 4.1 g/dL Normal 3.5-5.7 [facility] Comment on above: Performed By: #### 0 0121 #### [facility] [address] [place] [address], [facility] ALKALINE PHOSPH 67 IU/L Normal 34-104 [facility] Comment on above: Performed By: #### 0 0121 #### [facility] [address] [facility] [place] [address], [facility] ALT [Catalytic activity/Vol] 10 U/L Normal 7-52 [facility] Comment on above: Performed By: #### 0 0121 #### [facility] [address] [place] [address], [facility] AST [Catalytic activity/Vol] 13 U/L Normal 13-39 [facility] Comment on above: Performed By: #### 0 0121 #### [facility] [address] [place] [address], [place] Bilirubin [Mass/Vol] 0.6 mg/dL Normal 0.3-1.0 [facility] Comment on above: Performed By: #### 0 0121 #### [facility] [address] [place] [address], [place] Calcium [Mass/Vol] 9.0 mg/dL Normal 8.6-10.3 [facility] Comment on above: Performed By: #### 0 0121 #### [facility] [address] [place] [address], [place] Chloride [Moles/Vol] 106 mmol/L Normal 98-107 [facility] Comment on above: Performed By: #### 0 0121 #### [facility] [address] [place] [address], [place] CO2 [Moles/Vol] 28 mmol/L Normal 21-31 [facility] Comment on above: Performed By: #### 0 0121 #### [facility] [address] [place] [address], [place] Creatinine [Mass/Vol] 0.78 mg/dL Normal 0.60-1.20 [facility] Comment on above: Performed By: #### 0 0121 #### [facility] [address] [place] [address], [place] GFR/1.73 sq M.predicted among blacks MDRD (S/P/Bld) [Vol rate/Area] mL/min/{1.73_m2} Normal >60 [facility] Comment on above: Performed By: #### 0 0121 #### [facility] [address] [place] [address], [place] GFR/1.73 sq M.predicted among non-blacks MDRD (S/P/Bld) [Vol rate/Area] mL/min/{1.73_m2} Normal >60 [facility] Comment on above: Performed By: #### 0 0121 #### [facility] [address] [place] [id number], [facility] Glucose [Mass/Vol] 91 mg/dL Normal 70-100 [facility] Comment on above: Performed By: #### 0 0121 #### [facility] [address] [place] [id number], [facility] Potassium [Moles/Vol] 3.8 mmol/L Normal 3.5-5.1 [facility] Comment on above: Performed By: #### 0 0121 #### [facility] [address] [place] [id number], [facility] Protein [Mass/Vol] 6.5 g/dL Normal 6.0-8.3 [facility] Comment on above: Performed By: #### 0 0121 #### [facility] [address] [place] [id number], [facility] Sodium [Moles/Vol] 140 mmol/L Normal 136-145 [facility] Comment on above: Performed By: #### 0 0121 #### [facility] [address] [place] [address], [facility] Urea nitrogen [Mass/Vol] 9 mg/dL Normal 7-25 [facility] Comment on above: Performed By: #### 0 0121 #### [facility] [address] HIV VIRAL LOADon 06-20-2021 HIV QNT RNA PCR: Not detected Normal [facility] Comment on above: Result Comment: The Aptima HIV Quant assay is a real-time fixing machine operator-mediated amplification (TMA) test which has a dynamic range of 30-10,000,000 copies/mL (1.47-7.0 log copies/mL). The Aptima HIV Quant assay is used for quantitation of human immunodeficiency virus type 1 (HIV-1) RNA in human plasma from HIV-infected individuals. The Aptima HIV-1 Quant assay is intended for use in conjunction with clinical presentation and other laboratory markers for disease prognosis and for use as an aid in monitoring the effects of antiretroviral treatment, as measured by changes in plasma HIV-1 RNA levels. This assay is not intended to be used as a donor screening test for HIV-1 or as a diagnostic test to confirm the presence of HIV-1 infection. Performed By: #### 8 [id number] #### [facility] [address] [facility]. [address] LOG 10 COPIES Not detected Normal [facility] Comment on above: Performed By: #### 8 4178 #### [facility] [address] [facility]. [address] RPR (RAPID PLASMA REAGIN)on 06-20-2021 Reagin Ab RPR Ql (S) Non-Reactive Normal NON-REACTIVE [facility] Comment on above: Performed By: #### 3 1627 #### [facility] [address] [facility]. [address] URINALYSISon 06-20-2021 Appearance (U) SL CLOUDY Abnormal CLEAR [facility] Comment on above: Performed By: #### 1 0008 #### [facility] [address] [facility]. [address] Bilirubin Ql (U) Negative Normal NEGATIVE [facility] Comment on above: Performed By: #### 1 0008 #### [facility] [address] [facility]. [address] CALCIUM OXALATE CRYSTAL MANY Abnormal NONE SEEN [facility] Comment on above: Performed By: #### 1 0008 #### [facility] [address] [facility]. [address] Color (U) IRINA Abnormal YELLOW [facility] Comment on above: Performed By: #### 1 0008 #### [facility] [address] [facility] [place] [address], [facility] EPIS MANY Abnormal FEW,OCC,NONE SEEN [facility] Comment on above: Performed By: #### 1 0008 #### [facility] [address] [place] [address], [facility] Glucose Ql (U) Negative Normal NEGATIVE [facility] Comment on above: Performed By: #### 1 0008 #### [facility] [address] [place] [address], [facility] Hemoglobin Ql (U) MODERATE Abnormal NEGATIVE [facility] Comment on above: Performed By: #### 1 0008 #### [facility] [address] [facility] [place] [address], [facility] KETONE Negative Normal NEGATIVE [facility] Comment on above: Performed By: #### 1 0008 #### [facility] [address] [facility] [place] [address], [facility] LEUK LAURENCE Negative Normal NEGATIVE [facility] Comment on above: Performed By: #### 1 0008 #### [facility] [address] [facility] [place] [address], [facility] MUCUS THREADS MANY Abnormal NONE SEEN [facility] Comment on above: Performed By: #### 1 0008 #### [facility] [address] [facility] [place] [address], [facility] Nitrite Ql (U) Negative Normal NEGATIVE [facility] Comment on above: Performed By: #### 1 0008 #### [facility] [address] [facility] [place] [address], [facility] pH (U) 5.0 [pH] Normal 5.0-8.0 [facility] Comment on above: Performed By: #### 1 0008 #### [facility] [address] [facility] [place] [address], [facility] Protein Ql (U) 30 mg/dL Abnormal NEGATIVE [facility] Comment on above: Performed By: #### 1 0008 #### [facility] [address] [facility] [place] [address], [place] RBC 11-20 Abnormal NONE SEEN [facility] Comment on above: Performed By: #### 1 0008 #### [facility] [address] SPEC GRAV 1.026 High 1.015-1.020 [facility] Comment on above: Performed By: #### 1 0008 #### [facility] [address] [facility]. [address] WBC UA 0-2 Abnormal NONE SEEN [facility] Comment on above: Performed By: #### 1 0008 #### [facility] [address] t cell subset analysison CD3 % 75.51 % Normal 65.00-90.00 [facility] Comment on above: Order Comment: This test was developed and its performance characteristics determined by the [facility] Flow Cytometry Laboratory. It has not been cleared or approved by the U.S. Food and Drug Administration. Performed By: #### 9 0116 #### [facility] [address] CD3 ABSOLUTE 2300 cells/mm3 High 760-2130 [facility] Comment on above: Order Comment: This test was developed and its performance characteristics determined by the [facility] Flow Cytometry Laboratory. It has not been cleared or approved by the U.S. Food and Drug Administration. Performed By: #### 9 0116 #### [facility] [address] CD4 % 41.90 % Normal 40.00-70.00 [facility] Comment on above: Order Comment: This test was developed and its performance characteristics determined by the [facility] Flow Cytometry Laboratory. It has not been cleared or approved by the U.S. Food and Drug Administration. Performed By: #### 9 0116 #### [facility] [address] CD4 ABSOLUTE 1276 cells/mm3 High 430-1185 [facility] Comment on above: Order Comment: This test was developed and its performance characteristics determined by the [facility] Flow Cytometry Laboratory. It has not been cleared or approved by the U.S. Food and Drug Administration. Performed By: #### 9 0116 #### [facility] [address] CD4:CD8 RATIO 1.28 Normal 1.00-4.00 [facility] Comment on above: Order Comment: This test was developed and its performance characteristics determined by the [facility] Flow Cytometry Laboratory. It has not been cleared or approved by the U.S. Food and Drug Administration. Performed By: #### 9 0116 #### [facility] [address] CD8 % 32.79 % Normal 15.00-40.00 [facility] Comment on above: Order Comment: This test was developed and its performance characteristics determined by the [facility] Flow Cytometry Laboratory. It has not been cleared or approved by the U.S. Food and Drug Administration. Performed By: #### 9 0116 #### [facility] [address] CD8 ABSOLUTE 999 cells/mm3 High 180-865 [facility] Comment on above: Order Comment: This test was developed and its performance characteristics determined by the [facility] Flow Cytometry Laboratory. It has not been cleared or approved by the U.S. Food and Drug Administration. Performed By: #### 9 0116 #### [address] Coding Summaryon 01-08-2020 Coding Summary CODING DATE: 01/08/2020 [facility] STATUS: Home PAYOR: Medicare ADMIT DX: REASON FOR VISIT DX: Z20.828 Contact with and (suspected) exposure to other viral communicable diseases FINAL DX: PRINCIPAL: Z20.828 Contact with and (suspected) exposure to other viral communicable diseases SECONDARY: PYMT PROC APC STAT DESCRIPTION DOCTOR NAME DATE NOTE: The code number assigned matches the documented diagnosis and / or procedure in the patient's chart. However, the narrative phrase printed from the coding software may appear abbreviated, or result in slightly different terminology. Coded By: Amanda Carlos Date Saved: 01/08/2020 11:00 am Normal [facility] Lab - Immunology/Serology Re sultson 12-27-2019 Lab - Immunology/Serology Results [id number] [id number] [facility] Provider Orderson 12-26-2019 Provider Orders [id number]#1.0 [id number] [facility] SARS-CoV-2 (COVID-19) PCRon 12-26-2019 COVID-19 PCR Not Detected Normal Not Detected [facility] Comment on above: Order Comment: Sent to [facility] Performed By: #### [id number] #### [facility] (DEFAULT) [address] [place] [id number] Encounters Encounter Date Encounter Type Care Provider Facility Start: 09-04-2024 End: 09-04-2024 ambulatory [facility] Start: 09-04-2024 End: 09-04-2024 ambulatory [facility] Start: 07-28-2024 End: 07-28-2024 ambulatory [facility] Start: 07-28-2024 End: 07-28-2024 ambulatory [facility] Start: 05-18-2024 End: 08-29-2024 ambulatory Juli PERRY Start: 05-18-2024 End: 08-29-2024 Chart abstracting Juli SANDOVAL Start: 09-17-2022 End: 09-18-[address] DOCTOR LYNNE Facility:[facility] Start: 08-07-2022 End: 08-08-[address] DOCTOR LYNNE Facility:[facility] Start: 11-14-2021 End: 11-14-[address] SAMUEL LISTED REQUEST Facility:[facility] Plan of Treatment Date Care Activity Detail Author Start: 06-14-2024 Depression screening Depression [facility] Start: 06-14-2024 Screening for substa nce abuse Alcohol and Drug Screen [facility] Start: 02-13-2024 [id number] ( season) [id number] ( season) [facility] Start: 02-13-2024 Influenza vaccination Imm-Influenza (#1) [facility] Start: 2019 Imm-Zoster, Recombin ant (1 of 2) Imm-Zoster, Recombinant (1 of 2) [facility] Start: 2014 Screening for malign ant neoplasm of colon [facility] Start: 2009 Screening for malign ant neoplasm of breast Breast Cancer Screening (Mammogram) [facility] Start: 1990 Screening for malign ant neoplasm of cervix [facility] Start: 02-22-1988 Hepatitis B vaccination Imm-He patitis B (1 of 3 - 19+ 3-dose series) [facility] Start: 02-22-1988 Tetanus vaccination Imm-DTaP/T dap/Td (1 - Tdap) [facility] Start: 1987 Hypertension screening Hyperte nsion Screening (#1) [facility] Start: 02-22-1984 HIV Screening HIV Screening [facility] Start: 1969 Diabetes mellitus screening Diabetes Screening [facility] Start: 1969 Hepatitis C screening Hepatitis C Sc reening [facility] Start: 1969 Lipid panel Lipid Screening [facility] Start: 1969 Screening for malign ant neoplasm of cervix [facility] Start: 1969 Tobacco Screening Tobacco Screening [facility] Payers Date Payer Category Payer Unknown [id number] 2017 Unknown [id number] 1969 Unknown [id number] [id number] [id number] 1969 Unknown [id number] [id number] [id number] 1969 Unknown [id number] [id number] 1960 Medicaid [id number] 1960 Medicare [id number] Social History Date Type Detail Facility [facility] Start: 1970 Sex assigned at Female [facility] Start: 07-08-2024 Gender identity Identifies as female gender (finding) [facility] Start: 07-08-2024 Sexual orientation Heterosexual (te krueger) [facility] History of Present illness Narrative 08-29-2024 Juli Finch - 08/29/2024 1:45 PM EDT Note Date & Type Note Facility 08-29-2024 History of Present illness Narrative Originally Recorded By GILBERTO Middleton,Carson Type of Communication Interaction Documentation on behalf of client WITHOUT client present Intervention / Activities Other: Other intervention/activity Labs Case Progress Notes Narrative: New Labs were received and updated for cl in ETO and in RWAD. Labs were also uploaded into docu-storage. documented in this encounter [facility] [employer] Work Phone: Progress note 07-28-2024 Note Date & Type Note Facility 07-28-2024 Note Subjective HPI: Ruba Mejia is a 54 y.o. female presents for HIV medical care. Chief Complaint: HIV Date 1993 ART regimen Dovato CD4/date 1089 on 04/28/2024 VL/date UVL on 04/28/2024 The patient reports greater than 90 percent adherence to ART medications and is tolerating them well with no side effects.In addition, the following was brought to medical attention: 1. Cough last 6 - 8 weeks - clear now previously green/no blood - still some SOB and can occasionally hear herself wheezing - does not have an inhaler 2. L breast US to be repeated within 6 months and scheduled by patient for January 2024 but not done yet - repeat mamms not yet done - she says she will get it done shortly 3. Needs follow up of Lung CT - had last one in January 2023 - has not done this yet - she says she will get it done shortly 4. Dental work still in progress - going to get bottom implants and had follow up appointment in May - told she is not a candidate for implants 5. Declines vaccines (has consistently declined all vaccines) Review of Systems Constitutional: Negative for appetite change, fatigue, fever and unexpected weight change. No night sweats HENT: Negative for congestion, ear discharge, ear pain, nosebleeds, rhinorrhea, sinus pain, trouble swallowing and voice change. No white spots in mouth Eyes: Negative for photophobia, discharge and visual disturbance. No eye swelling Respiratory: Positive for cough and shortness of breath. Still occasional SOB but improved Cardiovascular: Negative for chest pain. Gastrointestinal: Negative for abdominal pain, constipation, diarrhea, nausea and vomiting. Genitourinary: Negative for dysuria, frequency and hematuria. No urinary incontinence No genital discharge Musculoskeletal: Negative for arthralgias, joint swelling, myalgias, neck pain and neck stiffness. No joint pain Skin: Negative for rash. Neurological: Negative for dizziness, syncope, weakness, numbness and headaches. Hematological: Negative for adenopathy. Psychiatric/Behavioral: Negative for sleep disturbance. Objective Physical Exam Constitutional: Appearance: Normal appearance. HENT: Head: Normocephalic and atraumatic. Right Ear: External ear normal. Left Ear: External ear normal. Nose: Nose normal. Mouth/Throat: Mouth: Mucous membranes are moist. Pharynx: Oropharynx is clear. Eyes: Conjunctiva/sclera: Conjunctivae normal. Cardiovascular: Rate and Rhythm: Normal rate and regular rhythm. Heart sounds: Normal heart sounds. No murmur heard. Pulmonary: Effort: Pulmonary effort is normal. Breath sounds: Wheezing and rales present. Comments: Some crackles in RLL Abdominal: Palpations: Abdomen is soft. There is no mass. Tenderness: There is no abdominal tenderness. Musculoskeletal: General: Normal range of motion. Cervical back: Normal range of motion. Skin: General: Skin is warm and dry. Neurological: General: No focal deficit present. Mental Status: She is alert and oriented to person, place, and time. Mental status is at baseline. Psychiatric: Mood and Affect: Mood normal. Lab on 04/28/2024 Component Date Value Sodium 04/28/2024 140 Potassium 04/28/2024 4.0 Chloride 04/28/2024 108 (H) CO2 04/28/2024 29 Anion Gap 04/28/2024 7 BUN 04/28/2024 10 Creatinine 04/28/2024 0.80 BUN/Creatinine Ratio 04/28/2024 12.5 Glucose 04/28/2024 91 Calcium 04/28/2024 9.4 AST 04/28/2024 12 (L) ALT (SGPT) 04/28/2024 10 Alkaline Phosphatase 04/28/2024 67 Total Protein 04/28/2024 6.8 Albumin 04/28/2024 4.4 Total Bilirubin 04/28/2024 0.4 eGFR 04/28/2024 87.0 HIV-1 Interpretation 04/28/2024 Not Detected HIV Quantitative RNA 04/28/2024 HIV Quantitative RNA Log 04/28/2024 RPR 04/28/2024 Nonreactive CD3 04/28/2024 77.59 CD3 Abs 04/28/2024 2,334 (H) CD4 04/28/2024 36.21 (L) CD4 Abs 04/28/2024 1,089 CD8 04/28/2024 40.58 (H) CD8 Abs 04/28/2024 1,221 (H) CD4/CD8 Ratio 04/28/2024 0.89 (L) Auto WBC 04/28/2024 8.45 RBC 04/28/2024 3.90 Hemoglobin 04/28/2024 13.0 Hematocrit 04/28/2024 38.6 MCV 04/28/2024 99.0 (H) MCH 04/28/2024 33.3 (H) MCHC 04/28/2024 33.7 RDW 04/28/2024 12.7 Neutrophils Relative 04/28/2024 51.6 Lymphocytes Relative 04/28/2024 35.6 Monocytes Relative 04/28/2024 6.5 Eosinophils Relative 04/28/2024 5.1 Basophils Relative 04/28/2024 0.8 Neutrophils Absolute 04/28/2024 4.36 Lymphocytes Absolute 04/28/2024 3.01 Monocytes Absolute 04/28/2024 0.55 Eosinophils Absolute 04/28/2024 0.43 Basophils Absolute 04/28/2024 0.07 Platelets 04/28/2024 230 nRBC % 04/28/2024 0.0 Immature Granulocytes Re* 04/28/2024 0.4 Immature Granulocytes Ab* 04/28/2024 0.03 No images are attached to the encounter. No results found for any visits on 07/28/24. There is no immunization history on file for this patient. Education not given regarding options for contraception - had tubal ligation, not currently sex (more content not included)... [facility] Progress note 07-28-2024 Note Date & Type Note Facility 07-28-2024 Note The patient had expr essed symptoms such as light diarrhea, on and off fever, congestion and mild chest discomfort- which patient believes it is from her constant coughing. Both flu and covid swabs were done. Both results came back negative and provider was notified. Orders were not able to edit. [facility] Progress note 07-17-2024 Note Date & Type Note Facility 07-17-2024 Note HIV Quantitative RNA Date Value 04/28/2024 Comment: Not Detected 07/03/2022 Not Detected copies/mL CD4 Abs (cells/mm3) Date Value 04/28/2024 1,089 Creatinine (mg/dL) Date Value 04/28/2024 0.80 Last Appointment: 04/28/24 There is no immunization history on file for this patient. [facility] Progress note 04-28-2024 Note Date & Type Note Facility 04-28-2024 Note Attestation with edits by CHIQUIS Wooten at 05/01/2024 11:46 AM Architect Internship reviewed care plan Case Management Care Plan 04/28/24 Labs Viral Load: Not detected Date drawn: 07/16/23 CD4:1054 Date drawn:07/16/23 Lab follow up needed: Labs done today Medication compliance Compliance: Patient reports being compliant with medication Prescribed ART: Dovato Barriers with medication: none Coverage Insurance: Medicaid /Medicare [employer] program: Case Management [employer] Intern: Carson Quintero Housing: Stable Type: House Barriers to stable housing:none Referrals made: No referrals needed Follow up plan: Will continue to monitor [facility] Utilities: Stable Barriers to stable utilities: none Referrals made:No referrals needed Follow up plan: Will continue to monitor [facility] Food: Patient has food security Barriers to stable food: none Referrals made: No referrals needed Follow up plan: Will continue to monitor [facility] Behavioral Health Therapy: Patient is not linked with a therapist Therapist: none Psychotropic Medication Management: Patient is not in medication management services Prescriber: none Groups: Patient has declined referrals for groups Social Support: Patient reports positive social support. Prevention for Positives PFP methods: [facility] reviewed Prevention for Positives information with patient. [facility] Progress note 04-28-2024 Note Date & Type Note Facility 04-28-2024 Note Waiter And Cashier met with patient on 04/28/24 manager home and patient created patient Care Plan and discussed additional SDOH: Transportation: Patient has access to transport via own vehicle. Dental:Linked with internal dentist Primary Care Provider: Does not need a PCP Eligbility: Patient meets program eligibility. Additional Appointment Notes: pt doing well on ART. Pt updated her eligibility paperwork today. Pt is in no need of MCM at this time. MCM will follow up at her next appt. [facility] Progress note 04-28-2024 Note Date & Type Note Facility 04-28-2024 Note Subjective HPI: Ruba Mejia is a 54 y.o. female presents for HIV medical care. Chief Complaint: HIV Date 1993 ART regimen Dovato CD4/date 1054 on 07/16/2023 VL/date UVL on 07/16/2023 The patient reports greater than 90 percent adherence to ART medications and is tolerating them well with no side effects.In addition, the following was brought to medical attention: L breast US to be repeated within 6 months and scheduled by patient for January 2024 but not done yet - repeat mamms ordered today Needs follow up of Lung CT - had last one in January 2023 - ordered repeat today Dental work still in progress - going to get bottom implants and has the follow up appointment for this in May Declines vaccines (has consistently declined all vaccines) Review of Systems Constitutional: Negative for appetite change, fatigue, fever and unexpected weight change. No night sweats HENT: Negative for congestion, ear discharge, ear pain, nosebleeds, rhinorrhea, sinus pain, trouble swallowing and voice change. No white spots in mouth Eyes: Negative for photophobia, discharge and visual disturbance. No eye swelling Respiratory: Positive for shortness of breath. Negative for cough. Still occasional SOB but improved Cardiovascular: Negative for chest pain. Gastrointestinal: Negative for abdominal pain, constipation, diarrhea, nausea and vomiting. Genitourinary: Negative for dysuria, frequency and hematuria. No urinary incontinence No genital discharge Musculoskeletal: Negative for arthralgias, joint swelling, myalgias, neck pain and neck stiffness. No joint pain Skin: Negative for rash. Neurological: Negative for dizziness, syncope, weakness, numbness and headaches. Hematological: Negative for adenopathy. Psychiatric/Behavioral: Negative for sleep disturbance. Objective Physical Exam Constitutional: Appearance: Normal appearance. HENT: Head: Normocephalic and atraumatic. Right Ear: External ear normal. Left Ear: External ear normal. Nose: Nose normal. Mouth/Throat: Mouth: Mucous membranes are moist. Pharynx: Oropharynx is clear. Eyes: Conjunctiva/sclera: Conjunctivae normal. Cardiovascular: Rate and Rhythm: Normal rate and regular rhythm. Heart sounds: Normal heart sounds. No murmur heard. Pulmonary: Effort: Pulmonary effort is normal. Breath sounds: Normal breath sounds. Abdominal: Palpations: Abdomen is soft. There is no mass. Tenderness: There is no abdominal tenderness. Musculoskeletal: General: Normal range of motion. Cervical back: Normal range of motion. Skin: General: Skin is warm and dry. Neurological: General: No focal deficit present. Mental Status: She is alert and oriented to person, place, and time. Mental status is at baseline. Psychiatric: Mood and Affect: Mood normal. Lab on 07/16/2023 Component Date Value Sodium 07/16/2023 139 Potassium 07/16/2023 3.9 Chloride 07/16/2023 106 CO2 07/16/2023 27 Anion Gap 07/16/2023 10 BUN 07/16/2023 11 Creatinine 07/16/2023 0.90 BUN/Creatinine Ratio 07/16/2023 12.2 Glucose 07/16/2023 85 Calcium 07/16/2023 9.3 AST 07/16/2023 14 ALT (SGPT) 07/16/2023 11 Alkaline Phosphatase 07/16/2023 90 Total Protein 07/16/2023 7.0 Albumin 07/16/2023 4.3 Total Bilirubin 07/16/2023 0.6 eGFR 07/16/2023 76.0 RPR 07/16/2023 Nonreactive CD3 07/16/2023 77.79 CD3 Abs 07/16/2023 2,231 (H) CD4 07/16/2023 36.75 (L) CD4 Abs 07/16/2023 1,054 CD8 07/16/2023 40.52 (H) CD8 Abs 07/16/2023 1,162 (H) CD4/CD8 Ratio 07/16/2023 0.91 (L) HIV-1 Interpretation 07/16/2023 Not Detected HIV Quantitative RNA 07/16/2023 HIV Quantitative RNA Log 07/16/2023 Auto WBC 07/16/2023 7.90 RBC 07/16/2023 3.96 Hemoglobin 07/16/2023 13.2 Hematocrit 07/16/2023 38.2 MCV 07/16/2023 96.5 MCH 07/16/2023 33.3 (H) MCHC 07/16/2023 34.6 RDW 07/16/2023 12.6 Neutrophils Relative 07/16/2023 53.0 Lymphocytes Relative 07/16/2023 36.3 Monocytes Relative 07/16/2023 7.8 Eosinophils Relative 07/16/2023 2.0 Basophils Relative 07/16/2023 0.6 Neutrophils Absolute 07/16/2023 4.18 Lymphocytes Absolute 07/16/2023 2.87 Monocytes Absolute 07/16/2023 0.62 Eosinophils Absolute 07/16/2023 0.16 Basophils Absolute 07/16/2023 0.05 Platelets 07/16/2023 267 nRBC % 07/16/2023 0.0 Immature Granulocytes Re* 07/16/2023 0.3 Immature Granulocytes Ab* 07/16/2023 0.02 No images are attached to the encounter. No results found for any visits on 04/28/24. There is no immunization history on file for this patient. Education not given regarding options for contraception - had tubal ligation, not currently sexually active Assessment/Plan No diagnosis found. Patient has an undetectable viral load on current antiretroviral therapy and is tolerating it well. There are no side effects or drug interactions on review of medications and review of systems. Patient will continue the current ART with labs and follow-up within (more content not included)... [facility] Summary Purpose Family History No Family History Records FoundNo Family History Records FoundNo Family History Records FoundNo Family History Records Found Advance Directives No Advanced Directives Records FoundNo Advanced Directives Records FoundNo Advanced Directives Records FoundNo Advanced Directives Records Found Additional Source Comments INFORMATION SOURCE (unrecogn ized section and content) DATE CREATED AUTHOR 01/08/2020 [facility] DATE CREATED AUTHOR AUTHOR'S ORGANIZ ATION 01/02/2022 [facility] DATE CREATED AUTHOR AUTHOR'S ORGANIZ ATION 09/27/2022 [facility] DATE CREATED AUTHOR AUTHOR'S ORGANIZ ATION 09/09/2024 [facility] Reason for Visit (unrecogniz ed section and content) Reason Comments RW Case Management FOR RECORDS PERTAINING TO PATIENTS WHO ARE OR HAVE BEEN ENROLLED IN A CHEMICAL DEPENDENCY/SUBSTANCEABUSE PROGRAM, SOME INFORMATION MAY BE OMITTED. This clinical summary was aggregated from multiple sources. Caution should be exercised in using it in the provision of clinical care. This summary normalizes information from multiple sources, and as a consequence, information in this document may materially change the coding, format and clinical context of patient data. In addition, data may be omitted in some cases. CLINICAL DECISIONS SHOULD BE BASED ON THE PRIMARY CLINICAL RECORDS. [employer] provides no warranty or guarantee of the accuracy or completeness of information in this document.
[2024-09-21 17:27] LABS: Influenza Virus A Antigen Negative; Influenza Virus B Antigen Negative; Internal Control Within Normal Limits; SARS-CoV-2 Ag NEGATIVE (NEGATIVE)
[2024-09-21 17:47] VITALS: BP 126/88; PULSE 86; O2SAT 98
== END 2024-09-21 17:48 | disposition home or self-care (01) ==
PROVIDERS: Emergency Provider Emergency Medicine
DX: J06.9 Acute upper respiratory infection, unspecified (principal); Z87.891 Personal history of nicotine dependence
CPT/HCPCS: 87804; 87811; 94640; 99284

== ENCOUNTER 2025-01-02 12:54 | Emergency (ER) | payer MEDICARE, MEDICAID, SELFPAY ==
[2025-01-02 13:01] VITALS: BP 114/70; PULSE 83; TEMP 36.5; O2SAT 96; BMI 25.6
--- OUTSIDE RECORDS SUMMARY | 2025-01-02 13:12 | XMS_ITS | Clinical Summary ---
Author Organization [employer] [facility] tem Address [id number] [place] [address] Care Team Providers Care Transportation Attendant Name Role Phone Kristal Sanches MD Primary Care Provider [phone] Social History Tobacco Use Types Packs/Day Years Used Date Smoking Tobacco: Never Assessed Childcare Answer Date Recorded Childcare Unknown 11/23/2018 Employment Answer Date Recorded Employment Unknown 11/23/2018 Purpose - Life Answer Date Recorded Purpose and direction in life Unknown Comments Unknown Sex and Gender Information Value Date Recorded Sex Assigned at Not on file Legal Sex Female 11:31 AM EDT Gender Identity Not on file Sexual Orientation Not on file Plan of Treatment Health Maintenance Due Date Last Done Comments Depression Screening 1981 Tobacco Screening 1981 Adult BMI Screening 1987 Pap Smear 1990 Zoster (Shingles) Vaccine (1 of 2) 2019 Influenza Vaccine 02/12/2025 03/20/2011, 03/24/2010 DTaP,Tdap and Td Vaccines (2 - Td or Tdap) 04/30/2026 04/30/2016 Medical Devices Not on file Insurance MEDICARE MEDICAID [place] Care Teams Transportation Attendant Relationship Specialty Start Date End Date Kristal Sanches MD PCP - General Infectious Disease 09/21/18
--- NOTE | 2025-01-02 13:34 | ED_ITS ---
HPI - Allergic Reaction General Chief complaint: Allergic Reaction Stated complaint: RASH Time Seen by Provider: 01/02/25 13:26 Source: patient Mode of arrival: walk-in History of Present Illness HPI narrative: The patient was working in the yard and apparently has been exposed to poison bibiana which she does every year, she is coming to the ER to get prednisone for treatment The rash is in her left side of the neck as well as her left arm Related Data Home Medications �Medication �Instructions �Recorded �Confirmed dolutegravir 50 mg-lamivudine 300 tab PO DAILY 5 mg tablet (Dovato) albuterol sulfate 90 mcg/actuation 2 puff inhalation Q 6H 01/02/25 01/02/25 aerosol inhaler Previous Rx's �Medication �Instructions �Recorded prednisone 20 mg tablet 40 mg (2 x 20 mg) PO DAILY 5 days 01/02/25 #10 tabs Allergies Allergy/AdvReac Type Severity Reaction Status Date / Time sulfamethoxazole (From Allergy Intermediate blood Verified 01/02/25 13:00 Bactrim) reaction trimethoprim (From Bactrim) Allergy Unknown blood Verified 01/02/25 13:00 reaction Review of Systems ROS Status of ROS 10 or more systems reviewed and unremark able except as noted in history and below PFSH PFSH Social History Smoking status: Former smoker Little interest or pleasure in doing things: not at all Feeling down, depressed, or hopeless: not at all Exam Narrative Exam Narrative: Nurses notes and vital signs reviewed and patient is not hypoxic. General: Well-appearing and in no apparent distress. Skin: The patient have a rash that maculopapular on the left side of the neck as well as in the left elbow mostly anteriorly No other rashes Constitutional Vital Signs, click to edit/add: Last Vital Signs Temp 97.7 F 01/02/25 13:01 Pulse 83 01/02/25 13:01 Resp 16 01/02/25 13:01 BP 114/70 01/02/25 13:01 Pulse Ox 96 01/02/25 13:01 O2 Del Method Room Air 01/02/25 13:01 Course Vital Signs Vital signs: Vital Signs Temperature 97.7 F 01/02/25 13:01 Pulse Rate 83 01/02/25 13:01 Respiratory Rate 16 01/02/25 13:01 Blood Pressure 114/70 01/02/25 13:01 Pulse Oximetry 96 01/02/25 13:01 Oxygen Delivery Method Room Air 01/02/25 13:01 Temperature 97.7 F 01/02/25 13:01 Pulse Rate 83 01/02/25 13:01 Respiratory Rate 16 01/02/25 13:01 Blood Pressure 114/70 01/02/25 13:01 Pulse Oximetry 96 01/02/25 13:01 Oxygen Delivery Method Room Air 01/02/25 13:01 MDM - Allergic Reaction MDM Narrative Medical decision making narrative: Patient presentation is mostly secondary to poison bibiana contact dermatitis The patient was started on prednisone with methylprednisone IM shot in the ER in addition to prednisone to go home for the next 5 days The patient is to follow up with primary care physician in next 2-3 days or to return to the emergency department should any of the signs or symptoms worsen or new symptoms develop. The patient agrees with the following Diagnosis and Treatment plan and the patient will be discharged home. Discharge Plan Discharge Chief Complaint: Allergic Reaction Clinical Impression: Poison bibiana Patient Disposition: Home, Self-Care Time of Disposition Decision: 13:34 Condition: Good Prescriptions / Home Meds: New prednisone 20 mg tablet 40 mg PO DAILY 5 Days Qty: 10 0RF No Action Dovato 50-300 mg tablet PO DAILY albuterol sulfate 90 mcg/actuation HFA aerosol inhaler 2 puff INHALATION Q6H Print Language: Northern Irish Instructions: Contact Dermatitis (DC), Poison Bibiana (ED) Referrals: Physician,Non-Staff, MD [Primary Care Provider] - 1 week
[2025-01-02] MEDS: METHYLPREDNISOLONE SOD SUCC PF 40 MG/ML VIAL IM (13:50)
== END 2025-01-02 13:59 | disposition home or self-care (01) ==
PROVIDERS: Emergency Provider Emergency Medicine
DX: L23.7 Allergic contact dermatitis due to plants, except food (principal); Z87.891 Personal history of nicotine dependence
CPT/HCPCS: 96372; 99284; J2919

== ENCOUNTER 2025-06-09 18:05 | Emergency (ER) | payer MEDICARE, SELFPAY ==
[2025-06-09 18:15] VITALS: BP 111/73; PULSE 98; TEMP 37.4; O2SAT 95; BMI 22.9
--- OUTSIDE RECORDS SUMMARY | 2025-06-09 18:34 | XMS_ITS | CCD ---
Author Organization [facility] Care Team Providers Care Academic Tutor Name Role Phone REQUEST, DR NONE LISTED Primary Care Unavaila ble PAY ., DR TINEO Admitting Unavailable PAY ., DR TINEO Attending Unavailable ZIEBER, DR ROBBY Leyva Consulting Unavailable PAY ., DR TINEO Consulting Unavailable MISC, DR RIOS Admitting Unavailable MISC, DR IROS Attending Unavailable REQUEST, NONE LISTED Primary Care Unavaila ble MISC, DR RIOS Consulting Unavailable ZIEBER, DR ROBBY Leyva Consulting Unavailable MISC, DR RIOS Admitting Unavailable MISC, DR RIOS Attending Unavailable REQUEST, NONE LISTED Primary Care Unavaila ble MISC, DR RIOS Consulting Unavailable ZIEBER, DR ROBBY Leyva Consulting Unavailable Unavailable Primary Care Provider Unavailabl WILSON Zhou Referring Unavailable WILSON RAY Attending Unavailable WILSON RAY Referring Unavailable WILSON RAY Referring Unavailable WILSON RAY Referring Unavailable Allergies Allergy ClassificationReported Allergen(s)Allergy TypeDate of OnsetReaction(s) Facility (1 source)Sulfamethoxazole / TrimethoprimDrug Jtptfau74-28-9583[facility] Repository (1 source)abacavir; Translations: [ABACAVIR]Drug Gpwfblc86-08-7612EoydazrbxwOhioHealth Dublin Methodist Hospital Repository (1 source)Sulfamethoxazole / Trimethoprim; Translations: [SULFAMETHOXAZOLE-TRIMETHOPRIM]Drug Wavfhul66-26-1734PpnowuntnaOhioHealth Dublin Methodist Hospital Repository Problems Active Problems Problem ClassificationProblemDateDocumented DateEpisodic/ChronicChronic obstructive pulmonary disease and bronchiectasis (1 source)Chronic obstructive pulmonary disease with (acute) exacerbation; Translations: [COPD WITH ACUTE EXACERBATION]Onset: 11-91-4520FcqdmpoWYA infection (4 sources)Human immunodeficiency virus [HIV] disease; Translations: [Asymptomatic human immunodeficiency virus [HIV] infection status]Onset: 32-66-7334MusrvsmIpuajrafxvlh breast conditions (4 sources)Unspecified lump in unspecified breast; Translations: [Unspecified lump in left breast, subareolar]Onset: 25-79-8158UiugbjaoXbttluak codes; unclassified (1 source)Family history of malignant neoplasm of bladder; Translations: [FAM HX MALIGNANT NEOPLASM BLADDER]Onset: 94-17-8830NhwxqdfuKqyhqqhco-related disorders (3 sources)Nicotine dependence, cigarettes, uncomplicated; Translations: [Nicotine dependence, unspecified, inremission]Onset: 73-73-8494Jcfzfke Unclassified (1 source)Unspecified lump in the left breast, overlapping quadrants; Translations: [UNS LUMP LT BREAST OVRLPNG QUADRNTS]Onset: 99-46-9742Awqmyeyzgtjp (2 sources)COUGH, UNSPECIFIED; Translations: [COUGH, UNSPECIFIED]Onset: 91-94-8040Iqwullfpgmrz (1 source)CONTACT W/AND (SUSP) EXPOS COVID-19; Translations: [CONTACT W/AND (SUSP) EXPOS COVID-19]Onset: 11-17-2021 Past or Other Problems Problem ClassificationProblemDateDocumented DateEpisodic/ChronicOther screening for suspected conditions (not mental disorders or infectious disease) (10 sources)Inconclusive mammogram; Translations: [Encounter for screening for malignant neoplasm of respiratory organs]Onset: 22-25-8877RyydsdxfCbair upper respiratory infections (1 source)Acute upper respiratory infection, unspecified; Translations: [ACUTE UP RESPIRATORY INFECTION UNS]Onset: 19-60-6024XmsgyqqfMlwkeafjb (except that caused by tuberculosis or sexually transmitted disease) (2 sources)Pneumonia, unspecified organism; Translations: [Pneumonia, unspecified organism]Onset: 90-63-6075LxvhrdswVdmpgrvb codes; unclassified (2 sources)Family history of ischemic heart disease and other diseases of the circulatory system; Translations: [Family history of ischemic heart disease and other diseases of the circulatory system]Onset: 97-07-5418BirkfwpvWvfbyqgbw and history of mental health and substance abuse codes (3 sources)Personal history of nicotine dependence; Translations: [PERSONAL HISTORY OF NICOTINE DEPEND]Onset: 00-23-8465OtfcqcvjQorjxxutpznp (1 source)COUGH, UNSPECIFIED; Translations: [COUGH, UNSPECIFIED]Onset: 11-14-2021 Results Test NameValueInterpretationReference RangeFacilityRefillon 06-47-8388Bpjrak [id number] Ruba Mejia 1970 F Date Provider Department Center 04/18/2025 WILSON NARVAEZ [facility] Family History Problem Relation Age of Onset Diabetes Mother Other Father Lymphoma Sister Other Brother Family Status - Relation Status Age at Mother Father Sister Brother Reason for Visit and Comments: Med Refill [[id number]][facility] SystemDocumentationon [id number] Ruba Mejia 1970 F Date Provider Department Center 01/30/2025 TRESA CARR [facility] Family History Problem Relation Age of Onset Diabetes Mother Other Father Lymphoma Sister Other Brother Family Status - Relation Status Age at Mother Father Sister Brother Reason for Visit and Comments: Eligibility 2024 [Other][facility]36on 12-27-2024 36Called patient and informed that AAA results were normal. Patient thanked us for the call and has no questions at this time.[facility]36on 04-33-774796Rubpqn patient and let her know that her abdominal ultra sound results showed that her aorta was normal per Dr. Ray. She stated understanding and thanked me for the call.[facility] SystemCBC WITH AUTO DIFFERENTIALon 37-50-1675Tefrldrnj (Bld) [#/Vol]0.05 10*3/uLNormal0.00-0.20 [facility] HospitalComment on above:Performed By: #### [id number] #### [facility] ([facility]AK[facility]) [address] [place], [place] [address]Kojijocdn/100 WBC (Bld)0.7 %Normal0.0-1.0UnOhioHealth Dublin Methodist HospitalComment on above:Performed By: #### [id number] #### [facility] ([facility]) [address] [place], [place] [address]Uqrjsmoglkw (Bld) [#/Vol]0.28 10*3/uLNormal0.00-0.50UnOhioHealth Dublin Methodist HospitalComment on above:Performed By: #### [id number] #### [facility] ([facility]) [address] [place] [address]Kfppqgfsesm/100 WBC (Bld)3.7 %Normal0.0-6.0UnOhioHealth Dublin Methodist HospitalComment on above:Performed By: #### [id number] #### [facility] ([facility]) [address] [place], [place] [address]Ynoxflejazw distribution width (RBC) [Ratio]12.0 %Normal 11.5-15.0UnOhioHealth Dublin Methodist HospitalComment on above:Performed By: #### [id number] #### [facility] ([facility]) [address] [place], [place] [address]SJUVELWXGYP MEAN CORPUSCULAR HEMOGLOBIN CONCENTRATION (G/DL) BY NYGYVRTDS80.9 g/bUIrwymb32.0-35.0UnOhioHealth Dublin Methodist HospitalComment on above:Performed By: #### [id number] #### [facility] ([facility]) [address] [place], [place] [address]Nesmgczaxx (Bld) [Volume fraction]37.8 %Bcolfz19.0-45.0 [facility] Memorial HospitalComment on above:Performed By: #### [id number] #### [facility] ([facility]) [address] [place], [place] [address]Xkwshcckeb (Bld) [Mass/Vol]12.8 g/oJRoghmn83.0-15.0UnOhioHealth Dublin Methodist HospitalComment on above:Performed By: #### [id number] #### [facility] ([facility]) [address] [place], [place] [address]Qpmtwcjp granulocytes (Bld) [#/Vol]0.02 10*3/uLNormal0.00-0.20 [facility] Memorial HospitalComment on above:Performed By: #### [id number] #### [facility] ([facility]) [address] [place] [place] [address]Fwnztjjt granulocytes/100 WBC (Bld)0.3 %Normal0.0-1.0UnOhioHealth Dublin Methodist HospitalComment on above:Performed By: #### [id number] #### [facility] ([facility]) [address] [place], [place] [address]Byntwokinac (Bld) [#/Vol]2.98 10*3/uLNormal1.20-4.00UnOhioHealth Dublin Methodist HospitalComment on above:Performed By: #### [id number] #### [facility] ([facility]) [address] [place], [place] [address]Drtyzrnbkih/100 WBC (Bld)39.1 %Uwfnxe41.0-45.0UnOhioHealth Dublin Methodist HospitalComment on above:Performed By: #### [id number] #### [facility] ([facility]) [address] [place], [place] [address]WJT (RBC) [Entitic mass]32.6 goEcyili83.0-33.0UnOhioHealth Dublin Methodist HospitalComment on above:Performed By: #### [id number] #### [facility] ([facility]) [address] [place], [place] [address]FOR (RBC) [Entitic vol]96.2 uOFhfije44.0-98.0UnOhioHealth Dublin Methodist HospitalComment on above:Performed By: #### [id number] #### [facility] ([facility]) [address] [place], [place] [address]Gsszvakjy (Bld) [#/Vol]0.57 10*3/uLNormal0.10-1.00UnOhioHealth Dublin Methodist HospitalComment on above:Performed By: #### [id number] #### [facility] ([facility]) [address] [place], [place] [address]Tzfjgloyb/100 WBC (Bld)7.5 %Normal5.0-12.0UnOhioHealth Dublin Methodist HospitalComment on above:Performed By: #### [id number] #### [facility] ([facility]) [address] [place] [address]Dfgylrinecf (Bld) [#/Vol]3.73 10*3/uLNormal1.60-7.60UnOhioHealth Dublin Methodist HospitalComment on above:Performed By: #### [id number] #### [facility] ([facility]) [address] [place] [address]Wejghrlzepb/100 WBC (Bld)48.7 %Nionws27.0-72.0UnOhioHealth Dublin Methodist HospitalComment on above:Performed By: #### [id number] #### [facility] ([facility]) [address] [place] [address]KVJQ (PER 100 WBCS) BY AUTOMATED COUNT0.0 %Skpwtq7NlaejdhudlOhioHealth Dublin Methodist HospitalComment on above:Performed By: #### [id number] #### [facility] ([facility]) [address] [place] [address]QFQLGIWRP (10*3/UL) IN BLOOD AUTOMATED [id number] 10*3/uLNormal 150-400UnOhioHealth Dublin Methodist HospitalComment on above:Performed By: #### [id number] #### [facility] ([facility]) [address] [place] [address]BKS (Bld) [#/Vol]3.93 10*6/uLNormal3.80-5.00UnOhioHealth Dublin Methodist HospitalComment on above:Performed By: #### [id number] #### [facility] ([facility]) [address] [place] [address]MQH (Bld) [#/Vol]7.63 10*3/uLNormal4.00-10.60UnOhioHealth Dublin Methodist HospitalComment on above:Performed By: #### [id number] #### [facility] ([facility]) [address] [place] [address]SWBNWJXML TRACHOMATIS AND NEISSERIA GONORRHEA, TMAon 10-27-2024 CHLAMYDIA TRACHOMATIS DNA PROBE (PRESENCE) IN UNSP SPECNegativeNormalNegative [facility] Memorial HospitalComment on above:Result Comment: No Chlamydia trachomatis rRNA Detected. The Aptima Combo 2 Assay is a FDA approved target amplification nucleic acid probe test that utilizes target capture for the in vitro qualitative detection and differentiation of ribosomal RNA (rRNA)from Chlamydia trachomatis (CT) and/or Neisseria gonorrhoeae (GC) to aid the diagnosis of chlamydial and/or gonococcal urogenital disease using the [facility]. The Aptima Combo 2 Assay involves target capture, target amplification by [employer] Felt Hat Blocker-Mediated Amplification (TMA), and the detection of the amplification products (amplicon) by the Hybridization Protection Assay (HPA). The internal process controls of the [facility] monitor the target capture, amplification, and detection steps of the assay, this is not intended to control for sampling adequacy.Performed By: #### [id number] #### [facility] ([facility]ER) [address] [place], [place] [address]IEAHYVAWP GONORRHOEAE DNA PROBE (PRESENCE) IN UNSP SPECNegative NormalNegativeUnOhioHealth Dublin Methodist HospitalComment on above:Result Comment: No Neisseria gonorrhoeae rRNA Detected. The Aptima Combo 2 Assay is a FDA approved target amplification nucleic acid probe test that utilizes target capture for the in vitro qualitative detection and differentiation of ribosomal RNA (rRNA)from Chlamydia trachomatis (CT) and/or Neisseria gonorrhoeae (GC) to aid the diagnosis of chlamydial and/or gonococcal urogenital disease using the [facility]. The Aptima Combo 2 Assay involves target capture, target amplification by Western Felt Hat Blocker-Mediated Amplification (TMA), and the detection of the amplification products (amplicon) by the Hybridization Protection Assay (HPA). The internal process controls of the [facility] monitor the target capture, amplification, and detection steps of the assay, this is not intended to control for sampling adequacy.Performed By: #### [id number] #### [facility] ([facility]) [address] [place], [place] [address]JJWWSFMPWHCHL METABOLIC PANELon 39-82-7875Vcqtigg [Mass/Vol]4.1 g/dLNormal3.5-5.7UnOhioHealth Dublin Methodist HospitalComment on above:Performed By: #### [id number] #### [facility] ([facility]) [address] [place], [place] [address]VYN [Catalytic activity/Vol]80 U/FYiqhns26-722HrzlbbtvxyOhioHealth Dublin Methodist HospitalComment on above:Performed By: #### [id number] #### [facility] ([facility]) [address] [place], [place] [address]ZBZ [Catalytic activity/Vol]8 U/LNormal7-52UnOhioHealth Dublin Methodist HospitalComment on above:Performed By: #### [id number] #### [facility] ([facility]) [address] [place], [place] [address]Hefyd gap [Moles/Vol]8 mmol/LNormal7-20UnOhioHealth Dublin Methodist HospitalComment on above:Performed By: #### [id number] #### [facility] ([facility]) [address] [place], [place] [address]FOU [Catalytic activity/Vol]14 U/QJxqjus98-18JsvnnmdihnOhioHealth Dublin Methodist HospitalComment on above:Performed By: #### [id number] #### [facility] ([facility]) [address] [place], [place] [address]Qpovpmuiy [Mass/Vol]0.6 mg/dLNormal0.3-1.0UnOhioHealth Dublin Methodist HospitalComment on above:Performed By: #### [id number] #### [facility] ([facility]) [address] [place], [place] [address]Wminnbh [Mass/Vol]8.7 mg/dLNormal8.6-10.3UnOhioHealth Dublin Methodist HospitalComment on above:Performed By: #### [id number] #### [facility] ([facility]) [address] [place], [place] [address]Geosfbtm [Moles/Vol]107 mmol/SVqsndc16-143MfjkldhrulOhioHealth Dublin Methodist HospitalComment on above:Performed By: #### [id number] #### [facility] ([facility]) [address] [place], [place] [address]UJ7 [Moles/Vol]29 mmol/UZkcovu74-02VxtlfbzxuxOhioHealth Dublin Methodist HospitalComment on above:Performed By: #### [id number] #### [facility] ([facility]) [address] [place] [address]Ptucgfropw [Mass/Vol]0.94 mg/dLNormal0.60-1.20UnOhioHealth Dublin Methodist HospitalComment on above:Performed By: #### [id number] #### [facility] ([facility]) [address] [place], [place] [address]JAEIMEVSZM FILTRATION RATE ML/MIN/1.73 SQ M.BJOZENKBR44.7 mL/min/1.73m*2Normal>60.0UnOhioHealth Dublin Methodist HospitalComment on above: Result Comment: The [facility]???s estimated glomerular filtration rate (eGFR) will no [...] potential consequences that do not disproportionately affect anyone group of individuals.Performed By: #### [id number] #### [facility] ([facility]) [address] [place] [place], [place] [address]Rgbuqsa [Mass/Vol]96 mg/zXQwjael16-504RaeyxbinrlOhioHealth Dublin Methodist HospitalComment on above:Performed By: #### [id number] #### [facility] ([facility]) [address] [place], [place] [address]Syvvzkwii [Moles/Vol]4.1 mmol/LNormal3.5-5.1UnOhioHealth Dublin Methodist HospitalComment on above:Performed By: #### [id number] #### [facility] ([facility]) [address] [place] [place], [place] [address]Cnvlfox [Mass/Vol]6.8 g/dLNormal6.0-8.3UnOhioHealth Dublin Methodist HospitalComment on above:Performed By: #### [id number] #### [facility] ([facility]) [address] [place], [place] [address]Tkurwc [Moles/Vol]140 mmol/LGdxmsh617-435KfialiciteOhioHealth Dublin Methodist HospitalComment on above:Performed By: #### [id number] #### [facility] ([facility]) [address] [place], [place] [address]Iwfd nitrogen [Mass/Vol]9 mg/dLNormal7-25UnOhioHealth Dublin Methodist HospitalComment on above:Performed By: #### [id number] #### [facility] ([facility]) [address] [place], [place] [address]CGBF NITROGEN/CREATININE (MASS RATIO) IN SER/PLAS9.6Normal [facility] HospitalComment on above:Performed By: #### [id number] #### [facility] ([facility]) [address] [place], [place] [address]Eohhy [id number] Ruba Mejia 1970 F Date Provider Department Center 10/27/2024 2244-[facility] MP LAB RESOURCE MP DRAW Medical Pavi Family History Problem Relation Age of Onset Diabetes Mother Other Father Lymphoma Sister Other Brother Family Status - Relation Status Age at Mother Father Sister Brother DeceasedNormalUniversOhioHealth Arthur G.H. Bing, MD, Cancer CenterOffice Visiton 87-58-9281Hgsdcx-up [id number] Ruba Mejia 1970 F Date Provider Department Center 10/27/2024 Casey-WILSON RAY [facility] Family History Problem Relation Age of Onset Diabetes Mother Other Father Lymphoma Sister Other Brother Family Status - Relation Status Age at Mother Father Sister Brother Level of Service:42955 [place] OFFICE/OUTPATIENT ESTABLISHED MOD MDM 30 MIN Reason for Visit and Comments: Asymptomatic HIV infection, with no history of HIV-related [Other] Health Maintenance [619] Med Management [[id number]]NormalUnOhioHealth Dublin Methodist HospitalOrders Only on 37-14-4138Xzeqli [id number] Ruba Mejia 1970 F Date Provider Department Center 10/27/2024 SOLANGEJUANAN [facility] INF [facility] Family History Problem Relation Age of Onset Diabetes Mother Other Father Lymphoma Sister Other Brother Family Status - Relation Status Age at Mother Father Sister Brother DeceasedNormalUniversity Grant HospitalRPRon 58-57-1638QQCAKN AB PRESENCE IN SERUM BY RPRNon-ReactiveNormalNonreactiveUnOhioHealth Dublin Methodist HospitalComment on above:Performed By: #### [id number] #### [facility] ([facility]) [address] [place], [place] [address]X CELL SUBSET ANALYSISon 85-34-5493LM183.81 %Relvla77.00-90.00 [facility] Memorial HospitalComment on above:Performed By: #### [id number] #### [facility] ([facility]) [address] [place], [place] [address]GC3 XZLSWYWK2109 cells/ch4Hgno651-2450DeaqwghjotOhioHealth Dublin Methodist HospitalComment on above:Performed By: #### [id number] #### [facility] [address] [facility] [place], [place] [address]MZ014.90 %Low40.00-70.00UnOhioHealth [facility] Hospital Comment on above:Performed By: #### [id number] #### [facility] ([facility]) [address] [place], [place] [address]TY1 UZZHWIKE9572 cells/sl2Odarom159-5031EamezltapcOhioHealth Dublin Methodist HospitalComment on above:Performed By: #### [id number] #### [facility] ([facility] [address] [place], [place] [address]TU1:CD80.94Low1.00-4.00[facility] Comment on above:Performed By: #### [id number] #### [facility] ([facility]) [address] [place], [place] [address]SG525.18 %Fprhcx63.00-40.00UnOhioHealth [facility] Methodist Hospital Comment on above:Performed By: #### [id number] #### [facility] ([facility]) [address] [place], [place] [address]RS8 UBMYKEYH5334 cells/oi8Rtwz306-941AqjatqubavTriHealth McCullough-Hyde Memorial HospitalComment on above:Performed By: #### [id number] #### [facility] ([facility]) [address] [place], [place] [address]SLMQSWIDKG MICROSCOPIC WITH REFLEX CULTUREon 30-75-3892VUNJS (#/LPF) IN URINE SEDIMENTFewNormalNone Seen, Occasional, FewUnOhioHealth Dublin Methodist HospitalComment on above:Performed By: #### [id number] #### [facility] ([facility]) [address] [place], [place] [address]FRZ (#/HPF) IN URINE TXBUGONV88-53SonmsausKwbl Seen, 0-2 [facility] HospitalComment on above:Performed By: #### [id number] #### [facility] ([facility]) [address] [place], [place] [address]HKGNEXFI EPITHELIAL CELLS (#/LPF) IN URINE SEDIMENTManyAbnormal None Seen, Occasional, FewUnOhioHealth Dublin Methodist HospitalComment on above: Performed By: #### [id number] #### [facility] ([facility]) [address] [place], [place] [address]PRC (LEUKOCYTE) (#/HPF) IN URINE SEDIMENT3-5AbnormalNone Seen, 0-2UnOhioHealth Dublin Methodist HospitalComment on above:Performed By: #### [id number] #### [facility] ([facility]) [address] [place], [place] [address]UQYKABMGKZ WITH REFLEX CULTUREon 56-06-8470RFGRVWMLE, TOTAL PRESENCE IN URINENegativeNormalNegativeUnOhioHealth Dublin Methodist Hospital Comment on above:Performed By: #### [id number] #### [facility] ([facility]) [address] [place], [place] [address]Vfmrwcb (U)CloudyAbnormalClearUnOhioHealth Dublin Methodist HospitalComment on above:Performed By: #### [id number] #### [facility] ([facility]) [address] [place], [place] [address]Zawch (U)YellowNormalColorless, Yellow, Light-YellowUnOhioHealth Dublin Methodist HospitalComment on above:Performed By: #### [id number] #### [facility] ([facility]) [address] [place], [place] [address]GDSZFLL (MG/DL) IN URINENormalNormalNormalUniversOhioHealth Arthur G.H. Bing, MD, Cancer CenterComment on above:Performed By: #### [id number] #### [facility] ([facility]) [address] [place], [place] [address]KXQOLMHBEZ PRESENCE IN URINEModerateAbnormalNegativeUnOhioHealth Dublin Methodist HospitalComment on above:Performed By: #### [id number] #### [facility] ([facility]) [address] [place], [place] [address]Tmexxjw Ql (U)NegativeNormalNegativeUnOhioHealth Dublin Methodist HospitalComment on above:Performed By: #### [id number] #### [facility] ([facility]) [address] [place], [place] [address]FHFNBQQDZ ESTERASE PRESENCE IN URINE BY TEST STRIPSmallAbnormal NegativeUnOhioHealth Dublin Methodist HospitalComment on above:Performed By: #### [id number] #### [facility] ([facility]) [address] [place], [place] [address]CFFOJUR PRESENCE IN URINENegativeNormalNegativeUnOhioHealth Dublin Methodist HospitalComment on above:Performed By: #### [id number] #### [facility] ([facility]) [address] [place], [place] [address]kS (U)6.0 [pH]Normal5.0-8.0UnOhioHealth Dublin Methodist Hospital Comment on above:Performed By: #### [id number] #### [facility] ([facility]) [address] [place], [place] [address]Lqxlkpp (U) [Mass/Vol]NegativeNormalNegativeUnOhioHealth Dublin Methodist HospitalComment on above:Performed By: #### [id number] #### [facility] ([facility]AKER) [address] [place], [place] [address]Gupqavcu gravity (U) [Rel density]1.521Agitxx0.010-1.030 [facility] Memorial HospitalComment on above:Performed By: #### [id number] #### [facility] ([facility]) [address] [place] [address]ICYGNHWMHCHZ (MG/DL) IN URINENormalNormalNormalUniversity Grant HospitalComment on above:Performed By: #### [id number] #### [facility] ([facility]) [address] ILLAyesha [place], [place] [address]VOXYV CULTURE, ROUTINEon 75-25-8030Fhefixdw identified Cx Nom (U)<10,000 CFU/ML No Significant GrowthNormalUniversj.w. ruby [facility] Comment on above:Performed By: #### [id number] ####[facility] ([facility])[address] [place], [place] [address]Stkvehaa [id number] Ruba Mejia 1970 F Date Provider Department Center 10/20/2024 WILSON NARVAEZ [facility] INF [facility] Family History Problem Relation Age of Onset Diabetes Mother Other Father Lymphoma Sister Other Brother Family Status - Relation Status Age at Mother Father Sister Brother Reason for Visit and Comments: Med Refill [079160]NormalUnOhioHealth Dublin Methodist HospitalBI MAMMOGRAM SCREENING TOMOSYNTHESIS BILATERALon 90-98-1710EW MAMMOGRAM SCREENING TOMOSYNTHESIS BILATERALThis is a summary report. The complete report is available in the patient's medical record. If you cannot access the medical record, please contact the sending organization for a detailed fax or copy. RUBA MEJIA 1970 [id number] EXAM: BI MAMMOGRAM SCREENING TOMOSYNTHESIS BILATERAL, 09/04/2024 [...] medical history was used to calculate their Tyrer-zick lifetime risk of malignancy. Scores less than 20% are not considered high risk per ACR guidelines and patient should continue with the above recommendation. Electronically signed: Gladis Bennett MD.Memorial Health SystemLDCT LUNG SCREENINGon 74-90-9768SVWJ LUNG SCREENINGThis is a summary report. The complete report [...] 1 Year Electronically signed: Robby Plaza. Not VldtdInvalid Interpretation CodeTriHealth McCullough-Hyde Memorial HospitalOffice Visiton 99-49-4277Lkkudj-up [id number] Ruba Mejia 1970 F Date Provider Department Center 07/28/2024 WILSON NARVAEZ [facility] CARE [facility] Family History Problem Relation Age of Onset Diabetes Mother Other Father Lymphoma Sister Other Brother Family Status - Relation Status Age at Mother Father Sister Brother Level of Service:13458 [place] OFFICE/OUTPATIENT ESTABLISHED MOD MDM 30 MIN Reason for Visit and Comments: Medication Visit [612] Health Maintenance [619] - Coughing, fever, congestion, diarrhea - onset 4wks Chest pressure feels tight HIV Positive/AIDS [109]NormalUnOhioHealth Dublin Methodist HospitalOrders Onlyon 35-86-5812Pfddqk [id number] Ruba Mejia Gretchen 1970 F Date Provider Department Center 07/28/2024 WILSON NARVAEZ [facility] INF [facility] Family History Problem Relation Age of Onset Diabetes Mother Other Father Lymphoma Sister Other Brother Family Status - Relation Status Age at Mother Father Sister Brother DeceasedNormalUniversity Grant HospitalCBC WITH AUTO DIFFERENTIALon 86-06-0516Ihwbctvcj (Bld) [#/Vol]0.07 10*3/uLNormal0.00-0.20 [facility] McCullough-Hyde Memorial HospitalComment on above:Performed By: #### [id number] #### [facility] ([facility]) [address] [place], [place] [address]Jlydfryos/100 WBC (Bld)0.8 %Normal0.0-1.0UnOhioHealth Dublin Methodist HospitalComment on above:Performed By: #### [id number] #### [facility] ([facility]) [address] [place], [place] [address]Rmylyaaevwa (Bld) [#/Vol]0.43 10*3/uLNormal0.00-0.50UnOhioHealth Dublin Methodist HospitalComment on above:Performed By: #### [id number] #### [facility] ([facility]) [address] [place], [place] [address]Rebxtgvitsy/100 WBC (Bld)5.1 %Normal0.0-6.0UnOhioHealth Dublin Methodist HospitalComment on above:Performed By: #### [id number] #### [facility] ([facility]) [address] [place] [address]Fszpxgzvtyc distribution width (RBC) [Ratio]12.7 %Normal 11.5-15.0UnOhioHealth Dublin Methodist HospitalComment on above:Performed By: #### [id number] #### [facility] ([facility]) [address] [place] [address]VGIIQNXWSWT MEAN CORPUSCULAR HEMOGLOBIN CONCENTRATION (G/DL) BY IPRLWNJDQ53.7 g/sLEakrvq31.0-35.0UnOhioHealth Dublin Methodist HospitalComment on above:Performed By: #### [id number] #### [facility] ([facility]) [address] [place] [address]Abvyptcacu (Bld) [Volume fraction]38.6 %Euarhg64.0-48.0 [facility]ullough-Hyde Memorial HospitalComment on above:Performed By: #### [id number] #### [facility] ([facility]) [address] [place], [place] [address]Ejlihfalsv (Bld) [Mass/Vol]13.0 g/aKMuqazu00.0-15.0UnOhioHealth Dublin Methodist HospitalComment on above:Performed By: #### [id number] #### [facility] ([facility]) [address] [place] [address]Aiqtewge granulocytes (Bld) [#/Vol]0.03 10*3/uLNormal0.00-0.20 [facility]-Hyde Memorial HospitalComment on above:Performed By: #### [id number] #### [facility] ([facility]) [address] [place] [address]Qrxjrnlr granulocytes/100 WBC (Bld)0.4 %Normal0.0-1.0UnOhioHealth Dublin Methodist HospitalComment on above:Performed By: #### [id number] #### [facility] ([facility]) [address] [place], [place] [address]Vaaqqajnfwp (Bld) [#/Vol]3.01 10*3/uLNormal1.20-4.00UnOhioHealth Dublin Methodist HospitalComment on above:Performed By: #### [id number] #### [facility] ([facility]) [address] [place] [address]Aiifpcahvlx/100 WBC (Bld)35.6 %Nkxbho00.0-45.0UnOhioHealth Dublin Methodist HospitalComment on above:Performed By: #### [id number] #### [facility] ([facility]) [address] [place] [address]BZN (RBC) [Entitic mass]33.3 jmWvky85.0-33.0UnOhioHealth Dublin Methodist HospitalComment on above:Performed By: #### [id number] #### [facility] ([facility]) [address] [place] [address]ZDI (RBC) [Entitic vol]99.0 rFVzae71.0-98.0UnOhioHealth Dublin Methodist HospitalComment on above:Performed By: #### [id number] #### [facility] ([facility]) [address] [place] [address]Zmxedifww (Bld) [#/Vol]0.55 10*3/uLNormal0.10-1.00UnOhioHealth Dublin Methodist HospitalComment on above:Performed By: #### [id number] #### [facility] ([facility]) [address] [place] [address]Qynyspnqb/100 WBC (Bld)6.5 %Normal5.0-12.0UnOhioHealth Dublin Methodist HospitalComment on above:Performed By: #### [id number] #### [facility] ([facility]) [address] [place], [place] [address]Cybgstopida (Bld) [#/Vol]4.36 10*3/uLNormal1.60-7.60UnOhioHealth Dublin Methodist HospitalComment on above:Performed By: #### [id number] #### [facility] ([facility]) [address] [place], [place] [address]Idhugfyehnl/100 WBC (Bld)51.6 %Uxrpzl18.0-72.0UnOhioHealth Dublin Methodist HospitalComment on above:Performed By: #### [id number] #### [facility] ([facility]) [address] [place] [address]VRRL (PER 100 WBCS) BY AUTOMATED COUNT0.0 %Qixaxt5AllaqrlvcvOhioHealth Dublin Methodist HospitalComment on above:Performed By: #### [id number] #### [facility] ([facility]) [address] [address]LBODHQKZP (10*3/UL) IN BLOOD AUTOMATED [id number] 10*3/uLNormal 150-400UnOhioHealth Dublin Methodist HospitalComment on above:Performed By: #### [id number] #### [facility] ([facility]) [address] [address]LGQ (Bld) [#/Vol]3.90 10*6/uLNormal3.80-5.00UnOhioHealth Dublin Methodist HospitalComment on above:Performed By: #### [id number] #### [facility] ([facility]) [address] [address]ERG (Bld) [#/Vol]8.45 10*3/uLNormal4.00-10.60UnOhioHealth Dublin Methodist HospitalComment on above:Performed By: #### [id number] #### [facility] ([facility]) [address] [place] [address]FHDJLGSOXBGIB METABOLIC PANELon 13-16-6096Akehrqi [Mass/Vol]4.4 g/dLNormal3.5-5.7UnOhioHealth Dublin Methodist HospitalComment on above:Performed By: #### [id number] ####[facility] ([facility])[address] [place] [address] ALP [Catalytic activity/Vol]67 U/KKlbbqq61-478VgvzynfqiaOhioHealth Dublin Methodist HospitalComment on above:Performed By: #### [id number] ####[facility] ([facility])[address] [place] [address]RUM [Catalytic activity/Vol]10 U/L Normal7-52UnOhioHealth Dublin Methodist HospitalComment on above:Performed By: #### [id number] ####[facility] ([facility])[address] [place], [place] [address]Tmazw gap [Moles/Vol]7 mmol/LNormal7-20UnOhioHealth Dublin Methodist HospitalComment on above:Performed By: #### [id number] ####[facility] ([facility])[address] [place], [place] [address]QUQ [Catalytic activity/Vol]12 U/WFsd84-62WpzyzijsouOhioHealth Dublin Methodist HospitalComment on above:Performed By: #### [id number] ####[facility] ([facility])[address] [place], [place] [address]Kidgicjvy [Mass/Vol]0.4 mg/dL Normal0.3-1.0UnOhioHealth Dublin Methodist HospitalComment on above:Performed By: #### [id number] ####[facility] ([facility])[address] [place] [address] Calcium [Mass/Vol]9.4 mg/dLNormal8.6-10.3UnOhioHealth Dublin Methodist Hospital Comment on above:Performed By: #### [id number] ####[facility] ([facility])[address] [place], [place] [address]Ojztdxdm [Moles/Vol]108 mmol/QYngk78-358XeaulwztojOhioHealth Dublin Methodist HospitalComment on above:Performed By: #### [id number] ####[facility] ([facility])[address] [place], [place] [address]JH0 [Moles/Vol]29 mmol/L Phfomg00-57QpgrckybmzOhioHealth Dublin Methodist HospitalComment on above:Performed By: #### [id number] ####[facility] ([facility])[address] [place] [address] Creatinine [Mass/Vol]0.80 mg/dLNormal0.60-1.20UnOhioHealth Dublin Methodist HospitalComment on above:Performed By: #### [id number] ####[facility] ([facility])[address] [place], [place] [address]INKRGZRVEL FILTRATION RATE ML/MIN/1.73 SQ M.VMQTWSTLH63.0 mL/min/1.73m*2Normal>60.0UnOhioHealth Dublin Methodist Hospital Comment on above:Result Comment: The [facility]???s estimated glomerular filtration rate (eGFR) will no longer include consideration of race in its calculation. The National Kidney Foundation???s eGFR Task Force developed new recommendations for the estimation of the glomerular filtration ra te in the [place] They recommend immediate implementation of the new equation refit without the race variable in all laboratories because the calculation does not include race. In addition to not including race in the calculation and reporting, it included diversity in its development, and has acceptable performance characteristics and potential consequences that do not disproportionately affect anyone group of individuals.Performed By: #### [id number] ####[facility] ([facility])[address] [place], [place] [address]Pkfjnnl [Mass/Vol]91 mg/dJNdgxnz22-596OooxppuaqqOhioHealth Dublin Methodist HospitalComment on above:Performed By: #### [id number] ####[facility] ([facility])[address] [place], [place] [address]Ydfvrejfn [Moles/Vol]4.0 mmol/LNormal3.5-5.1UnOhioHealth Dublin Methodist HospitalComment on above:Performed By: #### [id number] ####[facility] ([facility])[address] [place], [place] [address]Fkarfsv [Mass/Vol]6.8 g/dLNormal 6.0-8.3UnOhioHealth Dublin Methodist HospitalComment on above:Performed By: #### [id number] ####[facility] ([facility])[address] [place], [place] [address]Sovmyl [Moles/Vol]140 mmol/GCvflzs044-435EpqnhsbxxdOhioHealth Dublin Methodist HospitalComment on above:Performed By: #### [id number] ####[facility] ([facility])[address] [place], [place] [address]Vhsr nitrogen [Mass/Vol]10 mg/dLNormal7-25UnOhioHealth Dublin Methodist HospitalComment on above:Performed By: #### [id number] ####[facility] ([facility])[address] [place], [place] [address]AVKH NITROGEN/CREATININE (MASS RATIO) IN SER/PLAS12.5NormalUniMercy Health Urbana HospitalComment on above: Performed By: #### [id number] ####[facility] ([facility])[address] [place] [address]Qosxvrkvmjdhase [id number] Ruba Mejia 1970 Date Provider Department Center 04/28/2024 359TRESA FIGUEROA [facility] CARE [facility] Family History Problem Relation Age of Onset Diabetes Mother Other Father Lymphoma Sister Other Brother Family Status - Relation Status Age at Mother Father Sister Brother Reason for Visit and Comments: Care plan [Other][facility]orial Health SystemLabon 45-82-7870Yxb [id number] Ruba Mejia 1970 Provider Department Center 04/28/2024 [id number] MP LAB RESOURCE MP DRAW Medical Pavi Family History Problem Relation Age of Onset Diabetes Mother Other Father Lymphoma Sister Other Brother Family Status - Relation Status Age at Mother Father Sister Brother DeceasedNormalUniMercy Health Urbana HospitalOffice Visiton 07-83-1664Bvhuby-up [id number] Ruba Mejia 1970 Provider Department Center 04/28/2024 WILSON NARVAEZ [facility] CARE [facility] Family History Problem Relation Age of Onset Diabetes Mother Other Father Lymphoma Sister Other Brother Family Status - Relation Status Age at Mother Father Sister Brother Level of Service:57248 [place] OFFICE/OUTPATIENT ESTABLISHED MOD MDM 30 MIN Reason for Visit and Comments: Asymptomatic HIV infection, with no history of HIV-related [Other] Health Maintenance [619] - Declines flu shot Med Management [[id number]]Memorial Health SystemOrders Only on 02-89-6307Dwwnmn [id number] Ruba Mejia 1970 Provider Department Center 04/28/2024 WILSON NARVAEZ [facility] INF [facility] Family History Problem Relation Age of Onset Diabetes Mother Other Father Lymphoma Sister Other Brother Family Status - Relation Status Age at Mother Father Sister Brother DeceasedNormalUniversOhioHealth Arthur G.H. Bing, MD, Cancer CenterRPRon 02-74-9483XSDCSV AB PRESENCE IN SERUM BY RPRNon-ReactiveNormalNonreactiveUnOhioHealth Dublin Methodist HospitalComment on above:Performed By: #### [id number] #### [facility] ([facility]) [address] [place], [place] [address]H CELL SUBSET ANALYSISon 71-98-5940OR574.59 %Glqhiy55.00-90.00 [facility]-Hyde Memorial HospitalComment on above:Performed By: #### [id number] #### [facility] ([facility]) [address] [place], [place] [address]OU[address] [id number] cells/fe0Octk733-4877RmvzshufehOhioHealth Dublin Methodist HospitalComment on above:Performed By: #### [id number] #### [facility] ([facility]) [address] [place], [place] [address]JB407.21 %Low40.00-70.00[facility] Comment on above:Performed By: #### [id number] #### [facility] ([facility]) [address] [place], [place] [address]VK4 [id number] cells/al1Wbhylq150-7589OzbutuaypeOhioHealth Dublin Methodist HospitalComment on above:Performed By: #### [id number] #### [facility] ([facility]) [address] [place], [place] [address]XI1:CD80.89Low1.00-4.00[facility] Comment on above:Performed By: #### [id number] #### [facility] ([facility]) [address] [place], [place] [address]BC[address].58 %High15.00-40.00UnOhioHealth Dublin Methodist Hospital Comment on above:Performed By: #### [id number] #### [facility] ([facility]) [address] [place], [place] [address]EV1 UVOUWEZP4162 cells/ve8Jwdu452-540SmjjuwdsrgOhioHealth Dublin Methodist HospitalComment on above:Performed By: #### [id number] #### [facility] ([place]) [address] [address]CL MAMM LT DIAG FUon 73-24-2660MT MAMM LT DIAG FUPatient: RUBA MEJIA Exam Date: 09/17/2022 : 1970 Gender:F Ordering : DR RIOS [facility] Admission #: [id number] Family : Order #: [id number] CLICK HERE TO VIEW EXAM RADIOLOGY REPORT [...] bladder cancer at age 69. LOCATION: [facility] BREAST COMPOSITION: Heterogeneously dense,which may obscure small [...] by: Robby Balderas M.D. on 09/18/2022 at 07:16[facility] BREAST LEFT LIMITEDon 62-64-7337AZ BREAST LEFT LIMITEDPatient: RUBA MEJIA Exam Date: 09/17/2022 : 1970 Gender:F Ordering : DR DOCTOR KEARNEY Admission #: [id number] Family : Order #: [id number] CLICK HERE TO VIEW EXAM RADIOLOGY REPORT [...] bladder cancer at age 69. LOCATION: [facility] BREAST COMPOSITION: Heterogeneously dense,which may obscure small [...] on 09/18/2022 at 07:05 Approved by: Robby Bladeras M.D. on 09/18/2022 at 07:16[facility] ShawCT LUNG CANCER SCREENINGon 34-29-3382ED LUNG CANCER SCREENING EXAMINATION: CT LUNG CANCER [...] Electronically authenticated by: ROBBY BALDERAS Date: 2022-08-07 15:[address] [place] [address] MAMM SCREEN 3D HERIBERTO CADon 53-01-8225CH MAMM SCREEN 3D HERIBERTO CAD Patient: RUBA MEJIA Exam Date: 08/07/2022 : 1970 Gender:F Ordering : DR. WILSON RAY M.D. Admission #: [id number] Family : Order #: [id number] CLICK HERE TO VIEW EXAM RADIOLOGY REPORT [...] bladder cancer at age 69. LOCATION: [facility] BREAST COMPOSITION: Heterogeneously dense,which may obscure small [...] by: Robby Balderas M.D. on 08/07/2022 at 14:36[facility] W/DIFFon 46-80-3986TTH IMM GRANS0.0 10*3/uLNormal0.0-0.2The [facility]-Hyde Memorial HospitalComment on above:Performed By: #### [id number] #### [facility] [address] [facility] [place] [address], USAABS NEUTROPHILS4.4 10*3/uLNormal1.6-7.6The [facility]-Hyde Memorial HospitalComment on above:Performed By: #### [id number] #### [facility] [address] [facility] [place] [address], USABasophils (Bld) [#/Vol]0.0 10*3/uLNormal0.0-0.2The [facility]-Hyde Memorial HospitalComment on above:Performed By: #### [id number] #### [facility] [address] [facility] [place] [address], USABasophils/100 WBC (Bld)0.4 %Normal0.0-1.0The [facility]ough-Hyde Memorial HospitalComment on above:Performed By: #### [id number] #### [facility] [address] [facility] [place] [address], USAEosinophils (Bld) [#/Vol]0.1 10*3/uLNormal0.0-0.5The [facility]-Hyde Memorial HospitalComment on above:Performed By: #### [id number] #### [facility] [address] [facility] [place] [address], USAEosinophils/100 WBC (Bld)1.6 %Normal0.0-6.0The [facility]-Hyde Memorial HospitalComment on above:Performed By: #### [id number] #### [facility] [address] [place] [address], USAErythrocyte distribution width (RBC) [Ratio]13.0 %Normal 11.5-15.0The [facility]ough-Hyde Memorial HospitalComment on above:Performed By: #### [id number] #### [facility] [address] [place] [address], USAHematocrit (Bld) [Volume fraction]39.2 %Bkcodr35.0-45.0The [facility]-Hyde Memorial HospitalComment on above:Performed By: #### [id number] #### [facility] [address] [place] [address], USAHemoglobin (Bld) [Mass/Vol]13.0 g/lUDwwfvv36.0-15.0The [facility]-Hyde Memorial HospitalComment on above:Performed By: #### [id number] #### [facility] [address] [place] [address], USAIMMATURE GRANS0.1 %Normal0.0-1.0The [facility]ough-Hyde Memorial HospitalComment on above:Performed By: #### [id number] #### [facility] [address] [place] [address], USALymphocytes (Bld) [#/Vol]2.9 10*3/uLNormal1.2-4.0The [facility]-Hyde Memorial HospitalComment on above:Performed By: #### [id number] #### [facility] [address] [place] [address], USALymphocytes/100 WBC (Bld)36.5 %Jmwljh76.0-45.0The [facility]-Hyde Memorial HospitalComment on above:Performed By: #### [id number] #### [facility] [address] [place] [address], USAMCH (RBC) [Entitic mass]33.1 xzAhbs65.0-33.0The [facility]-Hyde Memorial HospitalComment on above:Performed By: #### [id number] #### [facility] [address] [place] [address], GUADALU[facility] COUNTY HOSPITALMCHC (RBC) [Mass/Vol]33.2 g/hOHmnqro16.0-35.0The [facility] Memorial HospitalComment on above:Performed By: #### [id number] #### [facility] [address] [place] [address], GUADAL[facility] COUNTY HOSPITALMCV (RBC) [Entitic vol]99.7 uRGfuh39.0-98.0The [facility] Memorial HospitalComment on above:Performed By: #### [id number] #### [facility] [address] [place] [address], USAMonocytes (Bld) [#/Vol]0.4 10*3/uLNormal0.1-1.0The [facility]Hy[facility] Memorial HospitalComment on above:Performed By: #### [id number] #### [facility] [address] [place] [address], USAMONOS5.5 %Normal5.0-12.0The [facility]-Hyde Memorial HospitalComment on above:Performed By: #### [id number] #### [facility] [address] [place] [address], USANeutrophils/100 WBC (Bld)55.9 %Alkkwl34.0-72.0The [facility]-Hyde Memorial HospitalComment on above:Performed By: #### [id number] #### [facility] [address] [place] [address], USANucleated RBC/100 WBC (Bld) [Ratio]0 %Normal0-0The [facility] Memorial HospitalComment on above:Performed By: #### [id number] #### [facility] [address] [place] [address], USAPLAT PHR018 10*3/tLBswgab594-037Mvk [facility] HospitalComment on above:Performed By: #### [id number] #### [facility] [address] [place] [address], USARBC (Bld) [#/Vol]3.93 10*6/uLNormal3.80-5.00The [facility]Hy[facility] Memorial HospitalComment on above:Performed By: #### [id number] #### [facility] [address] [place] [address], USAWBC (Bld) [#/Vol]7.95 10*3/uLNormal4.00-10.60The [facility] Memorial HospitalComment on above:Performed By: #### [id number] #### [facility] [address] [facility] [place] [address], USACHLAMYDIA/GONORRHEA BY TMAon 56-95-6465JEFPWLNXH BY TMA NegativeNormalNEGATIVEThe [facility] Memorial HospitalComment on above: Result Comment: No Chlamydia trachomatis rRNA Detected.Performed By: #### [id number] #### [facility] [address] [place] [address], USAGONORRHEA BY TMANegativeNormalNEGATIVEThe [facility]-Hyde Memorial HospitalComment on above:Result Comment: No Neisseria gonorrhoeae rRNA Detected. The Aptima Combo 2 Assay is a FDA approved target amplification nucleic acid probe test that utilizes target capture for the in vitro qualitative detection and differentiation of ribosomal RNA (rRNA) from Chlamydia trachomatis (CT) and/or Neisseria gonorrhoeae (GC) to aid the diagnosis of chlamydial and/or gonococcal urogenital disease using the [facility]. The Aptima Combo2 Assay involves: target capture; target amplification by [employer] Hat Blocker-Mediated Amplification (TMA); and detection of the amplification products (amplicon) by the Hybridization Protection Assay (HPA). The internal process controls of the [facility] monitor the target capture, amplification, and detection steps of the assay, this is NOT intended to control for sampling adequacy.Performed By: #### [id number] #### [facility] [address] [place] [address], USACOMP METABOLIC PANELon [id number] [Mass/Vol]3.9 g/dL Normal3.5-5.7The [facility] HospitalComment on above:Performed By: #### [id number] #### [facility] [address] [place] [address], USAALKALINE [id number] IU/BPbzvri02-134Vre [facility] HospitalComment on above:Performed By: #### [id number] #### [facility] [address] [place] [address], USAALT [Catalytic activity/Vol]8 U/LNormal7-52The [facility] HospitalComment on above:Performed By: #### [id number] #### [facility] [address] [place] [address], USAAST [Catalytic activity/Vol]14 U/RNnpkbh36-88Uvq [facility] HospitalComment on above:Performed By: #### [id number] #### [facility] [address] [place] [address], USABilirubin [Mass/Vol]0.6 mg/dLNormal0.3-1.0The [facility] HospitalComment on above:Performed By: #### 58505 #### [facility] [address] [place] [address], USACalcium [Mass/Vol]8.8 mg/dLNormal8.6-10.3The [facility] HospitalComment on above:Performed By: #### 40054 #### [facility] [address] [place] [address], USAChloride [Moles/Vol]106 mmol/QSkfnie71-932Uxs [facility] HospitalComment on above:Performed By: #### [id number] #### [facility] [address] [place] [address], USACO2 [Moles/Vol]28 mmol/BBxrwrw89-39Xwy [facility] HospitalComment on above:Performed By: #### 94841 #### [facility] [address] [place] [address], USACreatinine [Mass/Vol]0.74 mg/dLNormal0.60-1.20The [facility] HospitalComment on above:Performed By: #### [id number] #### [facility] [address] [place] [address], USAGFR/1.73 sq M.predicted among blacks MDRD (S/P/Bld) [Vol rate/Area]mL/min/{1.73_m2}Normal>60The [facility] Comment on above:Performed By: #### [id number] #### [facility] [address] [place] [address], USAGFR/1.73 sq M.predicted among non-blacks MDRD (S/P/Bld) [Vol rate/Area]mL/min/{1.73_m2}Normal>60The [facility] Comment on above:Performed By: #### [id number] #### [facility] [address] [place] [address], USAGlucose [Mass/Vol]89 mg/lINslijh18-384Aul [facility] HospitalComment on above:Performed By: #### [id number] #### [facility] [address] [place] [address], USAPotassium [Moles/Vol]4.1 mmol/LNormal3.5-5.1The [facility] HospitalComment on above:Performed By: #### [id number] #### [facility] [address] [place] [address], USAProtein [Mass/Vol]6.5 g/dLNormal6.0-8.3The [facility] HospitalComment on above:Performed By: #### 84765 #### [facility] [address] [place] [address], USASodium [Moles/Vol]139 mmol/TUqtqoh780-511Pub [facility] HospitalComment on above:Performed By: #### 34911 #### [facility] [address] [facility] [place] [id number], USAUrea nitrogen [Mass/Vol]9 mg/dLNormal7-25The [facility] HospitalComment on above:Performed By: #### [id number] #### [facility] [address] [facility] [place] [address], USAHIV VIRAL LOADon [id number] QNT RNA PCR:DETECTED BUT <30 NormalThe [facility] HospitalComment on above:Result Comment: The Aptima HIV Quant assay is a real-time metal polisher-mediated amplification (TMA) test which has a dynamic [...] test to confirm the presence of HIV-1 infection.Performed By: #### [id number] #### [facility] [address] [facility] [place] [address], USALOG 10 COPIES<1.47NormalThe [facility] HospitalComment on above:Performed By: #### [id number] #### [facility] [address] [facility] [place] [place] [address], USARPR (RAPID PLASMA REAGIN)on [id number] Ab RPR Ql (S) Jcr-ZwgzgweyMjcpevEIK-YVOXPGNJXmm [facility] HospitalComment on above:Performed By: #### [id number] #### [facility] [address] [place] [address], USAURINALYSISon 54-99-7680Fddzrpgpkb (U)SL CLOUDYAbnormalCLEAR The [facility] HospitalComment on above:Performed By: #### [id number] #### [facility] [address] [place] [address], USABilirubin Ql (U)NegativeNormalNEGATIVEThe [facility] HospitalComment on above:Performed By: #### [id number] #### [facility] [address] [place] [address], USAColor (U)YELLOWNormalYELLOWThe [facility] HospitalComment on above:Performed By: #### 71319 #### [facility] [address] [place] [address], USAEPISMODAbnormalFEW,OCC,NONE SEENThe [facility] HospitalComment on above:Performed By: #### [id number] #### [facility] [address] [place] [address], USAGlucose Ql (U)NegativeNormalNEGATIVEThe [facility] HospitalComment on above:Performed By: #### 41526 #### [facility] [address] [place] [address], USAHemoglobin Ql (U)MODERATEAbnormalNEGATIVEThe [facility] HospitalComment on above:Performed By: #### 59115 #### [facility] [address] [place] [address], USAKETONENegativeNormalNEGATIVEThe [facility] HospitalComment on above:Performed By: #### 65400 #### [facility] [address] [place] [address], USALEUK ESTERNegativeNormalNEGATIVEThe [facility] HospitalComment on above:Performed By: #### 45175 #### [facility] [address] [place] [address], USAMUCUS THREADSFEWAbnormalNONE SEENThe [facility] HospitalComment on above:Performed By: #### [id number] #### [facility] [address] [facility] [place] [address], USANitrite Ql (U)NegativeNormalNEGATIVEThe [facility] HospitalComment on above:Performed By: #### [id number] #### [facility] [address] [facility] [place] [place] [address], USApH (U)6.0 [pH]Normal5.0-8.0The [facility] HospitalComment on above:Performed By: #### 63701 #### [facility] [address] [facility] [place] [place] [address], USAProtein Ql (U)NegativeNormalNEGATIVEThe [facility] HospitalComment on above:Performed By: #### [id number] #### [facility] [address] [facility] [place] [place] [address], RRSQUI17-98TvsvmkzzYCYL SEENThe [facility] HospitalComment on above:Performed By: #### 59615 #### [facility] [address] [place] [address], USASPEC GRAV1.781Kkaenh4.015-1.020The [facility] HospitalComment on above:Performed By: #### 39571 #### [facility] [address] [place] [address], GUADALU[facility] COUNTY HOSPITALWBC UANONE SEENNormalNONE SEENThe [facility] HospitalComment on above:Performed By: #### 61887 #### [facility] [address] [place] [address], USAt cell subset analysison [id number] %76.36 %Normal 65.00-90.00The [facility] HospitalComment on above:Order Comment: This test was developed and its performance characteristics determined by the [facility]. It has not been cleared or approved by the U.S. Food and Drug Administration.Performed By: #### [id number] #### [facility] [address] [place] [address], USACD3 [id number] cells/gk5Tsyb447-0937Mjs [facility] HospitalComaspirus ontonagon [facility] on above:Order Comment: This test was developed and its performance characteristics determined by the [facility]. It has not been cleared or approved by the U.S. Food and Drug Administration.Performed By: #### [id number] #### [facility] [address] [facility] [place] [address], USACD4 %35.85 %Low40.00-70.00The [facility] HospitalComaspirus ontonagon hospital on above:Order Comment: This test was developed and its performance characteristics determined by the [facility]. It has not been cleared or approved by the U.S. Food and Drug Administration.Performed By: #### [id number] #### [facility] [address] [place] [address], USACD4 [id number] cells/ai4Leiqvw228-8893Opd [facility] HospitalComaspirus [facility]tonagon hospital on above:Order Comment: This test was developed and its performance characteristics determined by the [facility]. It has not been cleared or approved by the U.S. Food and Drug Administration.Performed By: #### [id number] #### [facility] [address] [place] [address], USACD4:CD8 RATIO0.90Low1.00-4.00The [facility] HospitalComaspirus [facility] on above:Order Comment: This test was developed and its performance characteristics determined by the [facility]. It has not been cleared or approved by the U.S. Food and Drug Administration.Performed By: #### [id number] #### [facility] [address] [place] [address], USACD8 %40.02 %High15.00-40.00The [facility] HospitalComaspirus [facility]tonagon hospital on above:Order Comment: This test was developed and its performance characteristics determined by the [facility]. It has not been cleared or approved by the U.S. Food and Drug Administration.Performed By: #### [id number] #### [facility] [address] [facility] [place] [address], USACD8 [id number] cells/cw0Mnkr448-229Mga [facility] HospitalComment on above:Order Comment: This test was developed and its performance characteristics determined by the [facility]. It has not been cleared or approved by the U.S. Food and Drug Administration.Performed By: #### [id number] #### [facility] [address] [facility] [place] [address], USACovid-19 PCR (CVDTB)on [id number]-CoV-2 (COVID-19) RNA JD+probe Ql (Unsp spec)Not detectedNormalNOT DETECTEDThe [facility] Comment on above:Result Comment: When diagnostic testing is negative, the [...] for this test is supported by the [place] of Health and Human Service's declaration that circumstances exist to justify the emergency use of in vitro diagnostics for the detection and/or diagnosis of the virus that causes COVID-19. This EUA will remain in effect for the duration of the COVID-19 declaration justifying emergency of IVDs, unless it is terminated or revoked by the FDA (after which the test may no longer be used).Performed By: #### CVDTBH #### [facility] [address] [place] [address] Dr. Luzma LandinINFLUENZA Alexander AND B AGon [id number] VA Medical CenterComment on above:Result Comment: Negative for Flu A protein angiten. Infection due to Flu A cannot be ruled out. FluA angiten in the sample may be below the detection limit of the test.Performed By: #### INFLUAB #### [facility] [address] [place] [address] Dr. Luzma BowensHSEE Bellevue HospitalComment on above: Result Comment: Negative for Flu B protein antigen. Infection due to Flu B cannot be ruled out. FluB antigen in the sample may be below the detection limit of the test.Performed By: #### INFLUAB #### [facility] [address] [place] [address] Dr. Luzma Munoz AGNegativeNormalNEGATIVE SEE COMMENTThe [facility] HospitalComment on above:Performed By: #### INFLUAB #### [facility] [address] [place] [address] Dr. Luzma De La Torre AGNegativeNormalNEGATIVE SEE COMMENTThe [facility] HospitalComment on above:Performed By: #### INFLUAB #### [facility] [address] [place] [address] Dr. Luzma LandinINTERNAL CONTROLSWithin Normal LimitsNormalWithin Normal Limits The [facility] HospitalComment on above:Performed By: #### INFLUAB #### [facility] [address] [place] [address] Dr. Luzma LandinXR CHEST 1 Von [id number] CHEST 1 VEXAMINATION: XR CHEST 1 V HISTORY: SHORTNESS OF BREATH COMPARISON: [...] Electronically authenticated by: ROBBY BALDERAS Date: 2021-11-14 12:02[facility] W/DIFFon [id number] IMM GRANS0.0 10*3/uLNormal0.0-0.2The [facility] HospitalComment on above:Performed By: #### [id number] #### [facility] [address] [place] [address], USAABS NEUTROPHILS5.4 10*3/uLNormal1.6-7.6The [facility] HospitalComment on above:Performed By: #### [id number] #### [facility] [address] [place] [address], USABasophils (Bld) [#/Vol]0.0 10*3/uLNormal0.0-0.2The [facility] HospitalComment on above:Performed By: #### [id number] #### [facility] [address] [place] [address], USABasophils/100 WBC (Bld)0.4 %Normal0.0-1.0The [facility] HospitalComment on above:Performed By: #### 08524 #### [facility] [address] [place] [address], USAEosinophils (Bld) [#/Vol]0.1 10*3/uLNormal0.0-0.5The [facility] HospitalComment on above:Performed By: #### [id number] #### [facility] [address] [place] [address], USAEosinophils/100 WBC (Bld)0.7 %Normal0.0-6.0The [facility] HospitalComment on above:Performed By: #### 45142 #### [facility] [address] [place] [address], USAErythrocyte distribution width (RBC) [Ratio]12.5 %Normal 11.5-15.0The [facility] HospitalComment on above:Performed By: #### 26301 #### [facility] [address] [place] [address], USAHematocrit (Bld) [Volume fraction]38.8 %Mykutw55.0-45.0The [facility] HospitalComment on above:Performed By: #### 66868 #### [facility] [address] [place] [address], USAHemoglobin (Bld) [Mass/Vol]13.1 g/hUUuljbc74.0-15.0The [facility] HospitalComment on above:Performed By: #### 01277 #### [facility] [address] [place] [address], USAIMMATURE GRANS0.4 %Normal0.0-1.0The [facility] HospitalComment on above:Performed By: #### 89110 #### [facility] [address] [place] [address], USALymphocytes (Bld) [#/Vol]3.1 10*3/uLNormal1.2-4.0The [facility] HospitalComment on above:Performed By: #### [id number] #### [facility] [address] [place] [address], USALymphocytes/100 WBC (Bld)33.4 %Skhyvc41.0-45.0The [facility] HospitalComment on above:Performed By: #### 24252 #### [facility] [address] [place] [address], GUADALUPE COUNTY HOSPITALMCH (RBC) [Entitic mass]34.0 kxDkse30.0-33.0The [facility] HospitalComment on above:Performed By: #### 32911 #### [facility] [address] [place] [address], USAMCHC (RBC) [Mass/Vol]33.8 g/lIZcycaj87.0-35.0The [facility] HospitalComment on above:Performed By: #### 01499 #### [facility] [address] [place] [address], USAMCV (RBC) [Entitic vol]100.8 iJAjlj99.0-98.0The [facility] HospitalComment on above:Performed By: #### 95202 #### [facility] [address] [place] [address], USAMonocytes (Bld) [#/Vol]0.5 10*3/uLNormal0.1-1.0The [facility] HospitalComment on above:Performed By: #### 66213 #### [facility] [address] [place] [address], USAMONOS5.7 %Normal5.0-12.0The [facility] HospitalComment on above:Performed By: #### 79875 #### [facility] [address] [place] [address], USANeutrophils/100 WBC (Bld)59.4 %Eshaef33.0-72.0The [facility] HospitalComment on above:Performed By: #### 69954 #### [facility] [address] [place] [address], USANucleated RBC/100 WBC (Bld) [Ratio]0 %Normal0-0The [facility] HospitalComment on above:Performed By: #### 54201 #### [facility] [address] [place] [address], USAPLAT WQO729 10*3/gPVgfnai057-663Fpz [facility] HospitalComment on above:Performed By: #### [id number] #### [facility] [address] [place] [address], USARBC (Bld) [#/Vol]3.85 10*6/uLNormal3.80-5.00The [facility] HospitalComment on above:Performed By: #### [id number] #### [facility] [address] [place] [address], USAWBC (Bld) [#/Vol]9.12 10*3/uLNormal4.00-10.60The [facility] HospitalComment on above:Performed By: #### 37359 #### [facility] [address] [place] [address], USACHLAMYDIA/GONORRHEA BY TMAon 96-77-0977IHPZUEOHM BY TMA NegativeNormalNEGATIVEThe [facility] HospitalComment on above: Result Comment: No Chlamydia trachomatis rRNA Detected.Performed By: #### [id number] #### [facility] [address] [facility] [place] [address], USAGONORRHEA BY TMANegativeNormalNEGATIVEThe [facility] HospitalComment on above:Result Comment: No Neisseria gonorrhoeae rRNA Detected. The Aptima Combo 2 Assay is a FDA approved target amplification nucleic acid probe test that utilizes target capture for the in vitro qualitative detection and differentiation of ribosomal RNA (rRNA) from Chlamydia trachomatis (CT) and/or Neisseria gonorrhoeae (GC) to aid the diagnosis of chlamydial and/or gonococcal urogenital disease using the [facility]. The Aptima Combo2 Assay involves: target capture; target amplification by [employer] Blocker-Mediated Amplification (TMA); and detection of the amplification products (amplicon) by the Hybridization Protection Assay (HPA). The internal process controls of the [facility] monitor the target capture, amplification, and detection steps of the assay, this is NOT intended to control for sampling adequacy.Performed By: #### [id number] #### [facility] [address] [facility] [place] [address], USACOMP METABOLIC PANELon 11-99-9449Dzpdyxv [Mass/Vol]4.1 g/dL Normal3.5-5.7The [facility] HospitalComment on above:Performed By: #### [id number] #### [facility] [address] [facility] [place] [address], USAALKALINE IYGQDT82 IU/MNxvjvx16-114Lqx [facility] HospitalComment on above:Performed By: #### 78144 #### [facility] [address] [place] [address], USAALT [Catalytic activity/Vol]10 U/LNormal7-52The [facility] HospitalComment on above:Performed By: #### [id number] #### [facility] [address] [place] [address], USAAST [Catalytic activity/Vol]13 U/AXykgko70-69Lnt [facility] HospitalComment on above:Performed By: #### [id number] #### [facility] [address] [place] [address], USABilirubin [Mass/Vol]0.6 mg/dLNormal0.3-1.0The [facility] HospitalComment on above:Performed By: #### 13673 #### [facility] [address] [place] [address], USACalcium [Mass/Vol]9.0 mg/dLNormal8.6-10.3The [facility] HospitalComment on above:Performed By: #### 77793 #### [facility] [address] [place] [address], USAChloride [Moles/Vol]106 mmol/BYbrjbb61-920Hgj [facility] HospitalComment on above:Performed By: #### 41383 #### [facility] [address] [place] [address], USACO2 [Moles/Vol]28 mmol/IQzrgmf36-13Qwq [facility] HospitalComment on above:Performed By: #### 28519 #### [facility] [address] [place] [address], USACreatinine [Mass/Vol]0.78 mg/dLNormal0.60-1.20The [facility] HospitalComment on above:Performed By: #### 70248 #### [facility] [address] [place] [address], USAGFR/1.73 sq M.predicted among blacks MDRD (S/P/Bld) [Vol rate/Area]mL/min/{1.73_m2}Normal>60The [facility] Comment on above:Performed By: #### 12000 #### [facility] [address] [place] [address], USAGFR/1.73 sq M.predicted among non-blacks MDRD (S/P/Bld) [Vol rate/Area]mL/min/{1.73_m2}Normal>60The [facility] Comment on above:Performed By: #### 37174 #### [facility] [address] [facility] [place] [address], USAGlucose [Mass/Vol]91 mg/mHEfulrf42-631Jcw [facility] HospitalComment on above:Performed By: #### 28325 #### [facility] [address] [facility] [place] [address], USAPotassium [Moles/Vol]3.8 mmol/LNormal3.5-5.1The [facility] HospitalComment on above:Performed By: #### 05217 #### [facility] [address] [facility] [place] [address], USAProtein [Mass/Vol]6.5 g/dLNormal6.0-8.3The [facility] HospitalComment on above:Performed By: #### 33512 #### [facility] [address] [facility] [place] [address], USASodium [Moles/Vol]140 mmol/DWhwuho027-632Pue [facility] HospitalComment on above:Performed By: #### [id number] #### [facility] [address] [place] [address], USAUrea nitrogen [Mass/Vol]9 mg/dLNormal7-25The [facility] HospitalComment on above:Performed By: #### [id number] #### [facility] [address] [facility] [place] [address], USAHIV VIRAL LOADon [id number] QNT RNA PCR:Not detected NormalThe [facility] HospitalComment on above:Result Comment: The Aptima HIV Quant assay is a real-time metal polisher-mediated amplification (TMA) test which has a dynamic [...] test to confirm the presence of HIV-1 infection.Performed By: #### [id number] #### [address] [place] [address], USALOG 10 COPIESNot detectedNormalThe [facility] HospitalComment on above:Performed By: #### [id number] #### [address] [address], USARPR (RAPID PLASMA REAGIN)on 67-76-4898Kkszwn Ab RPR Ql (S) Qib-DebqnwpaHunujcTDJ-SUHYIVWEGxm [facility] HospitalComment on above:Performed By: #### [id number] #### [address] [address], USAURINALYSISon 28-14-5743Ojozakkyck (U)SL CLOUDYAbnormalCLEAR The [facility] HospitalComment on above:Performed By: #### [id number] #### [address] [address], USABilirubin Ql (U)NegativeNormalNEGATIVEThe [facility] HospitalComment on above:Performed By: #### [id number] #### [facility] [address] [place] [address], USACALCIUM OXALATE CRYSTALMANYAbnormalNONE SEENThe [facility] HospitalComment on above:Performed By: #### [id number] #### [facility] [address] [place] [address], USAColor (U)AMBERAbnormalYELLOWThe [facility] HospitalComment on above:Performed By: #### [id number] #### [facility] [address] [place] [address], USAEPISMANYAbnormalFEW,OCC,NONE SEENThe [facility] HospitalComment on above:Performed By: #### [id number] #### [facility] [address] [place] [address], USAGlucose Ql (U)NegativeNormalNEGATIVEThe [facility] HospitalComment on above:Performed By: #### [id number] #### [facility] [address] [place] [address], USAHemoglobin Ql (U)MODERATEAbnormalNEGATIVEThe [facility] HospitalComment on above:Performed By: #### [id number] #### [facility] [address] [place] [address], USAKETONENegativeNormalNEGATIVEThe [facility] HospitalComment on above:Performed By: #### [id number] #### [facility] [address] [place] [address], USALEUK ESTERNegativeNormalNEGATIVEThe [facility] HospitalComment on above:Performed By: #### [id number] #### [facility] [address] [place] [address], USAMUCUS THREADSMANYAbnormalNONE SEENThe [facility] HospitalComment on above:Performed By: #### [id number] #### [facility] [address] [place] [address], USANitrite Ql (U)NegativeNormalNEGATIVEThe [facility] HospitalComment on above:Performed By: #### [id number] #### [facility] [address] [address] [facility] [place] [id number], GU[facility] COUNTY HOSPITALpH (U)5.0 [pH]Normal5.0-8.0The [facility] HospitalComment on above:Performed By: #### [id number] #### [facility] [address] [facility] [place] [address], GU[facility] COUNTY HOSPITALProtein Ql (U)30 mg/dLAbnormalNEGATIVEThe [facility] HospitalComment on above:Performed By: #### 47036 #### [facility] [address] [facility] [place] [address], FLXPLN32-43DsasieteRGPM SEENThe [facility] HospitalComment on above:Performed By: #### [id number] #### [facility] [address] [facility] [place] [address], USASPEC GRAV1.088Lwoy3.015-1.020The [facility] HospitalComment on above:Performed By: #### 80910 #### [facility] [address] [facility] [place] [address], GUADALUPE COUNTY HOSPITALWBC UA0-2AbnormalNONE SEENThe [facility] HospitalComment on above:Performed By: #### [id number] #### [facility] [address] [facility] [place] [address], USAt cell subset analysison 54-35-2862BV3 %75.51 %Normal 65.00-90.00The [facility] HospitalComment on above:Order Comment: This test was developed and its performance characteristics determined by the [facility]. It has not been cleared or approved by the U.S. Food and Drug Administration.Performed By: #### [id number] #### [facility] [address] [facility] [place] [address], USACD3 CGQWVMEP0901 cells/zi2Zcvc667-9446ZkhUniversity Hospitals St. John [facility] Center on above:Order Comment: This test was developed and its performance characteristics determined by the [facility]. It has not been cleared or approved by the U.S. Food and Drug Administration.Performed By: #### [id number] #### [facility] [address] [facility] [place] [address], USACD4 %41.90 %Trlkdr93.00-70.00The [facility] HospitalComaspirus ontonagon hospital on above:Order Comment: This test was developed and its performance characteristics determined by the [facility]. It has not been cleared or approved by the U.S. Food and Drug Administration.Performed By: #### [id number] #### [facility] [address] [facility] [place] [address], USACD4 LNYJOGTR0033 cells/lf3Nlaf653-9530Are [facility] on above:Order Comment: This test was developed and its performance characteristics determined by the [facility]. It has not been cleared or approved by the U.S. Food and Drug Administration.Performed By: #### [id number] #### [facility] [address] [place] [address], USACD4:CD8 RATIO1.82Gogvsp0.00-4.00The [facility] on above:Order Comment: This test was developed and its performance characteristics determined by the [facility]. It has not been cleared or approved by the U.S. Food and Drug Administration.Performed By: #### [id number] #### [facility] [address] [facility] [place] [address], USACD8 %32.79 %Agiqzd09.00-40.00The [facility] HospitalComaspirus ontonagon hospital on above:Order Comment: This test was developed and its performance characteristics determined by the [facility]. It has not been cleared or approved by the U.S. Food and Drug Administration.Performed By: #### [id number] #### [facility] [address] [place] [address], USACD8 JNTZMEKD616 cells/px9Xdbp566-526Otf [facility] HospitalComment on above:Order Comment: This test was developed and its performance characteristics determined by the [facility]. It has not been cleared or approved by the U.S. Food and Drug Administration.Performed By: #### [id number] #### [facility] [address] [place] [address], USACoding Summaryon 00-03-3019Alilqz SummaryCODING DATE: 01/08/2020 FINAL [facility] STATUS: Home PAYOR: Medicare ADMIT DX: REASON [...] By: Amanda Carlos Date Saved: 01/08/2020 11:00 [facility]ology Resultson 27-51-1277Rkn - Immunology/Serology Results [id number]#1.00OTTri[facility] Provider Orderson 29-37-8280Tcctcmfc Orders [id number]#1.00OTTri[facility] SARS-CoV-2 (COVID-19) PCRon 51-90-8154EOWRS-19 PCRNot DetectedNormalNot Detected [facility] CenterComment on above:Order Comment: [facility]formed By: #### [id number] #### [facility] (DEFAULT) [address] [place] [address] Encounters Encounter DateEncounter TypeCare ProviderFacilityStart: 04-02-2025 End: 54-14-1185nxrxjsvjtmSvyqtc Colley BS Work Phone: [facility] RWStart: 04-02-2025 End: 20-74-2868Skkar Slade IRVIN Work Phone: LUIS RICHtart: 11-22-2024 End: 38-42-0835fgrwyszijdVMVOUniversity Hospitals Conneaut Medical Centertart: 04-13-6251saxnuznplaPQABThe [facility]Health Systemtart: 09-04-2024 End: 60-20-2036yvjcwjsjfgOTFAThe [facility]Health Systemtart: 09-04-2024 End: 95-76-5970noutkwqqloAXSSThe [facility]Health Systemtart: 07-28-2024 End: 23-62-6487qipuiadusgCBIFThe [facility]Health Systemtart: 07-28-2024 End: 22-04-7586bmtbqpxczuFPSSUniversity Hospitals Conneaut Medical Centertart: 05-18-2024 End: 16-57-0504upmpyhxugmUqhysl KeoEH [place] RWStart: 05-18-2024 End: 81-40-7720Gcsut abstractingMeadville Medical Center ZacheryNorth Central Surgical Center HospitalOStart: 09-17-2022 End: 88-78-0837qskofcqgtlKY DOCTOR MISCFacility:P6Zdnsg: 08-07-2022 End: 15-75-0469txugfssnhsOK DOCTOR MISCFacility:D7Qwaqi: 11-14-2021 End: 04-75-1756gskpxlclxxPQ NONE LISTED REQUESTFacility:H1 Plan of Treatment DateCare ActivityDetailAuthorStart: 98-50-7481Ruv-COVID-19 ( season) Ymc-TBTJP-47 ( season)[facility] HealthStart: 48-73-5605Iimjeomkm vaccinationImm-Influenza (#1)[facility] HealthStart: 00-09-9932Bnrlomehxw screening Depression Annual ScreenSandstone Critical Access HospitalStart: 97-52-8355Mffeezmpk for substance abuseAlcohol and Drug ScreenSandstone Critical Access HospitalStart: 18-05-8174Een-COVID-19 ( season)Hfj-PELZS-87 ( season)[facility] HospitalStart: 02-13-2024 Influenza vaccinationImm-Influenza (#1)[facility] HospitalStart: 10-11-4534Rpi- Pneumococcal 50+ (1 of 1 - PCV)Imm-Pneumococcal 50+ (1 of 1 - PCV)[facility] Start: 51-13-4506Qfr-Zoster, Recombinant (1 of 2)Imm-Zoster, Recombinant (1 of 2)[facility] HospitalStart: 10-36-4250Kwbbjdexs for malignant neoplasm of colon [facility] HospitalStart: 57-21-1129Kdsjwzetn for malignant neoplasm of breastBreast Cancer Screening (Mammogram)[facility] HospitalStart: 56-41-8953Jplthnrbt for malignant neoplasm of cervixSandstone Critical Access HospitalStart: 85-96-1275Aggynrhbl B vaccinationImm-Hepatitis B (1 of 3 - 19+ 3-dose series)[facility] HospitalStart: 26-85-3957Syxumrz vaccinationImm-DTaP/Tdap/Td (1 - Tdap)[facility] HospitalStart: 42-37-4667Mfjomrlifwyi screeningHypertension Screening (#1)[facility] HospitalStart: 59-64-2644WRK ScreeningHIV ScreeningSandstone Critical Access HospitalStart: 59-00-6599Pavbmev ScreeningAnxiety ScreeningSandstone Critical Access HospitalStart: 58-84-4594Uuyepmyz mellitus screeningDiabetes ScreeningSandstone Critical Access HospitalStart: 23-58-0281Kvphcjpac C screening Hepatitis C ScreeningSandstone Critical Access HospitalStart: 05-47-7784Ivwqi panelLipid Screening [facility] HospitalStart: 81-45-1138Ucusoeqos for malignant neoplasm of cervixSandstone Critical Access HospitalStart: 40-29-5699Oqcgosq ScreeningTobacco ScreeningSandstone Critical Access Hospital Payers DatePayer CategoryPayerPolicy [id number] [id number] 1961Medicare [id number] Social History DateTypeDetailFacilityTobacco smoking status NHISTobacco smoking consumption unknownSandstone Critical Access HospitalStart: 78-45-2899Pfm assigned at birthFeLECOM Health - [facility] Start: 52-80-8668Dhhtny identityIdentifies as female gender (finding)[facility] HospitalStart: 80-71-5734Ykykir orientationHeterosexual (finding)[facility] Start: 00-13-9428OrpAmjagi (finding)[facility] Clinical Notes 04-28-2024 to 04-20-2025 Note Date & XjgoJjdmTmkwvypa64-90-8734 History of Present illness Narrative* Alvino Dhaliwal Jr. - 04/20/2025 11:19 AM EST Originally Recorded By: Chris Rios Collin Date Taken: 04/02/2025 Type of Communication Interaction: Email, letter or application with client Junior Account Manager/Staff Type: Benefits Navigator Start Time: 02:55PM End Time: 03:05PM Intervention / Activities: Client Transfer Conversation/Notification Ham Nieves is the payer of last resort: N/A Case Progress Notes Narrative: BNOC rec'd cl referral to [facility] from JANAE Strange. CC completed RSTP, roster, and introduction. CC sent the following email w/ welcome packet attached: Rashawn Lopez to Benefit Navigation! ?? You were recently transferred by your complex case manager, Carson, to our department as you were deemed a self-sufficient client in your care (think of us as a graduation program from case management). This email is just to inform you of what Benefit Navigation will look like, and what to expect! Your services will be like the case management services you previously received. You have consistently maintained an undetectable viral load and have established core medical services. You also have stabilized housing. You do not have any internal or external referral needs. Benefit Navigation s role is to provide support to clients like you who are self-sufficient in their health care. This program can support you in the continuation of your [employer] enrollment and maintaining your primary insurance coverage. Benefit Navigators can assist with providing benefit counseling for programs that you may be eligible, submitting medical bills, preauthorization, and/or copayment for any established, allowable core services. (These services include HIV-related medical appointments, established mental health, and oral services.) Your participation in this program involves a few olmstead items: responding to calls from the benefit navigation team, providing eligibility documents to process your [place] enrollment and/or other eligible insurance programs, attending scheduled appointments with the Benefit Navigation program every six months. Benefit Navigation is not case management so it is possible that you will not have the same Benefit Navigator every six months for your enrollment. You will only ever hear from us once every 6 months unless you request assistance from us directly. Our phone number is: [phone]. [phone] Our email is [email or web address]. Attached to this email is a welcome packet that I encourage you to read over to get a better feel of our services! If you have any questions or concerns, you can reach out to our team at any time, and we d be happy to assist you. Thank you! . First Name: Ruba Last Name: Andres documented in this [facility] Phone: 1(184) 569-123408-19-2025 [facility] sent out letter regarding eligibility that expires on 03/28/25.[facility] 01-30-2025 [facility] for [facility]. Patients next update is 02/06/26.[facility]05-16-2025 NoteAddendum: patient also reported brother had AAA repair - US of aorta orderedUnOhioHealth Dublin Methodist Hospital05-16-2025 NoteSubjective HPI: Ruba Mejia is a 54 y.o. female presents for HIV medical care. Chief Complaint: HIV Date Dx 1993 ART regimen Dovato CD4/date 1089 on 04/28/2024 VL/date UVL on 04/28/2024 The patient reports greater than 90 percent adherence to ART medications and is tolerating them well with no side effects.In addition, the following was brought to medical attention: 1. Mamms - repeated 09/04/2024 - WNL - repeat in one year 2.. LDCT repeated 09/05/2024 - WNL - repeat in one year 3. Dental work still in progress - but now with insurance problems with dental coverage! 4. Declines vaccines (has consistently declined all vaccines) 5. Stopped smoking and feeling better! Review of Systems Constitutional: Negative for appetite change, fatigue, fever and unexpected weight change. No night sweats HENT: Negative for congestion, ear discharge, ear pain, nosebleeds, rhinorrhea, sinus pain, trouble swallowing and voice change. No white spots in mouth Eyes: Negative for photophobia, discharge and visual disturbance. No eye swelling Respiratory: Still occasional SOB but improved Cardiovascular: Negative [...] is normal. Breath sounds: Normal breath sounds. No wheezing or rales. Abdominal: Palpations: Abdomen is soft. There is [...] MCHC 04/28/2024 33.7 RDW 04/28/2024 12.7 Neutrophils % 04/28/2024 51.6 Lymphocytes % 04/28/2024 35.6 Monocytes % 04/28/2024 6.5 Eosinophils % 04/28/2024 5.1 Basophils % 04/28/2024 0.8 Neutrophils Absolute 04/28/2024 4.36 Lymphocytes Absolute 04/28/2024 3.01 Monocytes Absolute 04/28/2024 0.55 Eosinophils Absolute 04/28/2024 0.43 Basophils Absolute 04/28/2024 0.07 Platelets 04/28/2024 230 nRBC % 04/28/2024 0.0 Immature Granulocytes % 04/28/2024 0.4 Immature Granulocytes Ab* 04/28/2024 0.03 No images are attached to the encounter. No results found for any visits on 10/27/24. There is no immunization history on file for this patient. Education not given regarding options for contraception - had tubal ligation, not currently sexually active Assessment/Plan No diagnosis found. Regarding HIV, the patient has an undetectable viral load on current antiretroviral therapy and is tolerating it well. There are no side effects or drug interactions on review of medications and review of systems. Patient will continue the current ART with labs and follow-up within 4 -6 months to ensure continuation of viral suppression. Patient also received medical social consultant and support service (more content not included)...[facility]03-18-2025 History of Present illness Narrative* Juli Finch - 08/29/2024 1:45 PM EDT Originally Recorded By GILBERTO Middleton,Carson Type of Communication Interaction Documentation on behalf of client WITHOUT client present Intervention / Activities Other: Other intervention/activity Labs Case Progress Notes Narrative: New Labs were received and updated for cl in ETO and in RWAD. Labs were also uploaded into docu-storage. documented in this encounterPres[facility] Hospital [employer] Work Phone: 1(814) 679-725102-14-2025 NoteThe patient had expressed symptoms such as light diarrhea, on and off fever, congestion and mild chest discomfort- which patient believes it is from her constant coughing. Both flu and covid swabs were done. Both results came back negative and provider was notified. Orders were not able to edit.[facility] 07-28-2024 NoteSubjective HPI: Ruba Mejia is a 54 y.o. female presents for HIV medical care. Chief Complaint: HIV Date Dx 1993 ART regimen Dovato CD4/date 1089 on [...] ligation, not currently sex (more content not included)...[facility]02-03-2025 NoteHIV Quantitative RNA Date Value 04/28/2024 Comment: Not Detected 07/03/2022 Not Detected copies/mL CD4 Abs (cells/mm3) Date Value 04/28/2024 1,089 Creatinine (mg/dL) Date Value 04/28/2024 0.80 Last Appointment: 04/28/24 There is no immunization history on file for this patient.[facility]11-15-2024 Note Attestation with edits by CHIQUIS Wooten at 05/01/2024 11:46 AM Ecommerce Marketing Specialist reviewed care plan Case Management Care Plan 04/28/24 Labs Viral Load: Not detected Date drawn: 07/16/23 CD4:1054 Date drawn:07/16/23 Lab follow up needed: Labs done today Medication compliance Compliance: Patient reports being compliant with medication Prescribed ART: Dovato Barriers with medication: none Coverage Insurance: Medicaid /Medicare [employer] program: Case Management [employer] Junior Account Manager: Carson Quintero Housing: Stable Type: House Barriers [...] social support. Prevention for Positives PFP methods: [facility] reviewed Prevention for Positives information with patient. [facility]11-15-2024 NoteMedical Junior Account Manager met with patient on 04/28/24 manager distribution center and patient created patient Care Plan and discussed additional SDOH: Transportation: Patient has access to transport via own vehicle. Dental:Linked with internal dentist Primary Care Provider: Does not need a PCP Eligbility: Patient meets program eligibility. Additional Appointment Notes: pt doing well on ART. Pt updated her eligibility paperwork today. Pt is in no need of [facility] at this time. MCM will follow up at her next appt.[facility]11-15-2024 NoteSubjective HPI: Ruba Mejia is a 54 y.o. female presents for HIV medical care. Chief Complaint: HIV Date Dx 1993 ART regimen Dovato CD4/date 1054 on [...] labs and follow-up within (more content not included)...[facility] Summary Purpose Family History No Family History Records FoundNo Family History Records FoundNo Family History Records FoundNo Family History Records Found Advance Directives No Advanced Directives Records FoundNo Advanced Directives Records FoundNo Advanced Directives Records FoundNo Advanced Directives Records Found Additional Source Comments INFORMATION SOURCE (unrecogn ized section and content) DATE CREATED AUTHOR 01/08/2020 [facility] DATE CREATED AUTHOR AUTHOR'S ORGANIZ ATION 01/02/2022 [facility] DATE CREATED AUTHOR AUTHOR'S ORGANIZ ATION 09/27/2022 [facility] DATE CREATED AUTHOR AUTHOR'S ORGANIZ ATION 04/20/2025 [facility] Reason for Visit (unrecogniz ed section and content) ReasonCommentsRW Case Management FOR RECORDS PERTAINING TO PATIENTS [...] BE BASED ON THE PRIMARY CLINICAL RECORDS. [facility]. provides no warranty or guarantee of the accuracy or completeness of information in this document.
[2025-06-09 19:02] LABS: SARS-CoV-2 Ag NEGATIVE (NEGATIVE)
--- NOTE | 2025-06-09 20:12 | ED_ITS ---
HPI HPI - General Adult General Chief complaint: Upper Respiratory Infection Stated complaint: BODY ACHES, FEVER Time Seen by Provider: 06/09/25 20:12 Source: patient Mode of arrival: walk-in Limitations: no limitations History of Present Illness HPI narrative: Patient is a 55-year-old female with a PMH of COPD that presents with complaints of cough, body aches, headache, and chills that started yesterday. She did not take her temperature at home. One of her grandchildren had confirmed influenza A. Related Data Home Medications ?Medication ?Instructions ?Recorded ?Confirmed dolutegravir 50 mg-lamivudine 300 1 tab PO DAILY 09/2106/09/25 mg tablet (Dovato) albuterol sulfate 90 mcg/actuation 2 puff inhalation Q 6H 01/02/25 06/09/25 aerosol inhaler Previous Rx's ?Medication ?Instructions ?Recorded prednisone 20 mg tablet 40 mg (2 x 20 mg) PO DAILY 5 days 01/02/25 #10 tabs oseltamivir 75 mg capsule (Tamiflu) 75 mg PO BID 5 day s #10 caps 06/09/25 Allergies Allergy/AdvReac Type Severity Reaction Status Date / Time sulfamethoxazole (From Allergy Intermediate blood Verified 01/02/25 13:00 Bactrim) reaction trimethoprim (From Bactrim) Allergy Unknown blood Verified 01/02/25 13:00 reaction Opioid HPI Opioid Management Most Recent Opioid Data: Last Pain Scale 8 05/16/23, 12:54 Review of Systems ROS Status of ROS 10 or more systems reviewed and unremark able except as noted in history and below PFSH PFSH Social History Smoking status: Former smoker Little interest or pleasure in doing things: not at all Feeling down, depressed, or hopeless: not at all Exam Narrative Exam Narrative: General: No distress, age-appropriate Skin: Warm, dry, no pallor. No rash. Head: Normocephalic, atraumatic. Neck: Supple, non-tender. Eye: Pupils are equal, round and EOMI. No scleral icterus. Ears, Nose, Mouth, and Throat: No nasal mucosal hypertrophy. Oral mucosa is moist, no posterior oropharynx erythema, uvula is mid-line Cardiovascular: Regular Rate and Rhythm without murmur, gallop or rub. Respiratory: No accessory muscle use or respiratory distress. Lungs are clear to auscultation, no wheezing, rales or rhonchi Chest Wall: no tenderness Musculoskeletal: Full ROM of all extremities, no calf or popliteal tenderness GI: Abdomen is soft, non-distended, non tender to palpation. No masses appreciated. No rebound, guarding, or rigidity noted. Neurological: A&O x4. No cranial nerve dysfunction observed. No truncal ataxia. Moves all extremities. Sensation intact. Psychiatric: Cooperative and interactive. Normal mood and affect. Constitutional Vital Signs, click to edit/add: Last Vital Signs Temp 101 F H 06/09/25 20:45 Pulse 95 H 06/09/25 20:45 Resp 12 06/09/25 20:45 BP 111/73 06/09/25 18:15 Pulse Ox 97 06/09/25 20:45 O2 Del Method Room Air 06/09/25 20:45 Documenting provider has reviewed patient's vital signs: yes Course Vital Signs Vital signs: Vital Signs Temperature 99.3 F 06/09/25 18:15 Pulse Rate 98 H 06/09/25 18:15 Respiratory Rate 18 06/09/25 18:15 Blood Pressure 111/73 06/09/25 18:15 Pulse Oximetry 95 06/09/25 18:15 Oxygen Delivery Method Room Air 06/09/25 18:15 Temperature 101 F H 06/09/25 20:45 Pulse Rate 95 H 06/09/25 20:45 Respiratory Rate 12 06/09/25 20:45 Blood Pressure 111/73 06/09/25 18:15 Pulse Oximetry 97 06/09/25 20:45 Oxygen Delivery Method Room Air 06/09/25 20:45 Medical Decision Making [facility] Narrative Medical decision making narrative: The patient is a 55-year-old female with a history of COPD presenting with fever (101?F), body aches, headache, and chills following recent exposure to grandchildren with confirmed influenza A. Although the rapid influenza swab was negative, her symptoms and exposure history remain highly suggestive of influenza. On exam she was in no respiratory distress, she was febrile at 101 ?F, vital signs were hemodynamically stable. She was saturating 97% O2 on room air. Given her COPD and likely false negative test result I recommended antiviral therapy with Tamiflu. We discussed risks and benefits, including side effects and patient would like to proceed. The decision was made to initiate antiviral therapy with oseltamivir (Tamiflu) 75 mg once daily in the ER [facility], with a prescription for 75 mg twice daily for 5 days sent to the pharmacy. The patient is advised to follow up closely for any worsening respiratory symptoms or signs of pneumonia. Return precautions were discussed, including seeking care for worsening shortness of breath, persistent fever, or if she becomes unable to maintain adequate oxygenation at home. Patient discharged in stable condition with antiviral therapy and plan for close follow-up with PCP. Differential Diagnosis Differential Diagnosis: Influenza, viral URI, COPD exacerbation, PNA Lab Data Lab results reviewed: Yes I reviewed the patient's lab results Labs: Lab Results 06/09/25 Range/Units 18:22 Influenza Type A Ag Negative Influenza Type B Ag Negative SARS-CoV-2 Ag (CV2AG) Negative (NEGATIVE) Discharge Plan Discharge Chief Complaint: Upper Respiratory Infection Clinical Impression: Influenza A Patient Disposition: Home, Self-Care Time of Disposition Decision: 20:16 Condition: Good Mode of Transportation: Private Vehicle Prescriptions / Home Meds: New oseltamivir [Tamiflu] 75 mg capsule 75 mg PO BID 5 Days Qty: 10 0RF No Action Dovato 50-300 mg tablet 1 tab PO DAILY albuterol sulfate 90 mcg/actuation HFA aerosol inhaler 2 puff INHALATION Q6H prednisone 20 mg tablet 40 mg PO DAILY 5 Days Qty: 10 0RF Print Language: Indonesian Instructions: Influenza (ED) Additional Instructions: Follow-Up Care * Follow-up with your primary care provider or the office of [specific healthcare facility] in 2-3 days, or sooner if your symptoms worsen. * If you don?t have a PCP or need urgent care, please visit an urgent care clinic or return to the emergency department if needed. Medications * Tamiflu (Oseltamivir): Take 75 mg twice a day for the next 5 days as prescribed. * How to take: Swallow the capsules whole with or without food. * Side effects to watch for: Nausea, vomiting, or unusual behavior (although rare). If you experience any severe side effects, stop taking the medication and seek immediate medical attention. Symptom Management * Fever and body aches: * Tylenol (acetaminophen) or ibuprofen can be taken for fever, headache, or body aches. Make sure to follow the recommended dose on the label, and do not take more than one medication containing acetaminophen. * Hydration: Drink plenty of fluids (water, soups, etc.) to stay hydrated. This is especially important as dehydration can worsen your symptoms. * Rest: Get plenty of rest to help your body fight off the infection. * Coughing: If you have a cough, consider using an [id number] cough suppressant or a humidifier to ease discomfort. Respiratory Care * COPD Management: * Continue using your regular COPD inhalers and medications as prescribed. If you?re experiencing any difficulty breathing or shortness of breath, please use your rescue inhaler as directed. * Monitor your symptoms closely. If you notice any increased difficulty breathing, wheezing, or new chest pain, go to the ER or call your doctor immediately. Red Flags ? Seek Immediate Medical Attention if: * Difficulty breathing or increased shortness of breath * Severe chest pain or tightness * Sudden confusion, dizziness, or difficulty staying alert * Worsening cough with green or bloody mucus * High fever (above 103?F) that does not respond to medication * Persistent vomiting or inability to keep fluids down Preventing the Spread of Illness * Isolation: Stay at home and avoid contact with others until at least 24 hours after fever has resolved without the use of fever-reducing medications. * Wash hands frequently with soap and water, and cover your mouth and nose with a tissue or elbow when you cough or sneeze. * Avoid sharing personal items such as towels, drinking glasses, and utensils. Influenza Considerations * Even though your test was negative, influenza is still a possibility, given your exposure to family members who are sick. * If your symptoms worsen or if a confirmed flu diagnosis is made later, we may adjust your treatment plan. COPD Exacerbation * If you notice any increase in your baseline symptoms (e.g., wheezing, shortness of breath, or more frequent coughing), you should call your healthcare provider for an assessment. An exacerbation of your COPD can occur during viral infections like the flu. Referrals: Physician,Non-Staff, MD [Primary Care Provider] - 1 week Discharge Date/Time: 06/09/25 20:48
[2025-06-09] MEDS: OSELTAMIVIR PHOSPHATE 75 MG CAPSULE PO (20:40)
[2025-06-09 20:45] VITALS: PULSE 95; TEMP 38.3; O2SAT 97
== END 2025-06-09 20:48 | disposition home or self-care (01) ==
PROVIDERS: Student in an Organized Health Care Education/Training Program; Emergency Provider Emergency Medicine
DX: J10.1 Influenza due to other identified influenza virus with other respiratory manifestations (principal); R05.9 Cough, unspecified; R51.9 Headache, unspecified; R50.9 Fever, unspecified
CPT/HCPCS: 87804; 87811; 99284